=== PATIENT | female | born 1945 | race Caucasian/White ===

== ENCOUNTER 2021-05-09 10:20 | Emergency (ER) | payer MEDICARE, SELFPAY ==
--- NOTE | ~2021-05-09 | CT_ITS ---
EXAMINATION: CT ABDOMEN AND PELVIS WITHOUT CONTRAST CLINICAL INFORMATION: Right lower abdominal pain COMPARISON: None TECHNIQUE: Multidetector volumetric imaging was performed from the superior aspect of the liver through the pubic symphysis. Sagittal and coronal reformatted images were obtained on the technologist's workstation. This CT examination was performed using dose optimization techniques as appropriate, variously including the following: *Automated exposure control *Adjustment of mA and/or kV according to patient size (this includes techniques or standardized protocols for targeted exams where dose is matched to indication/reason for exam; i.e. extremities or head) *Use of iterative reconstruction technique DLP: 503 mGy-cm FINDINGS: LUNG BASES: The visualized lung bases are unremarkable. LIVER, GALLBLADDER, AND BILIARY TREE: There is a 5.5 cm cyst in the lateral segment of the left lobe of the liver. The liver is otherwise unremarkable. The gallbladder is unremarkable. There is no biliary duct dilatation. PANCREAS: Unremarkable. SPLEEN: Unremarkable. ADRENAL GLANDS: There is a 2 x 2.4 cm low-attenuation left adrenal lesion. Hounsfield units without contrast measure 9. This is a small focus of calcification. The right adrenal gland is normal. KIDNEYS AND URETERS: There is question of 2 small right renal stones measuring 1 to 2 mm. No hydronephrosis, ureteral dilatation or ureteral stone is. There are left renal peripelvic cysts. There is question of a tiny 1 mm left renal stone. BLADDER: Empty and not well evaluated. GASTROINTESTINAL TRACT: There is diverticulosis of the colon. There is wall thickening of the sigmoid colon. There is mild stranding of the pericolic fat and prominent vessels. Findings are questionable for mild sigmoid colon colitis or diverticulitis. Small and large bowel is otherwise unremarkable. The appendix is unremarkable. The stomach is unremarkable. ABDOMINAL WALL: No significant hernia is appreciated. LYMPH NODES: Normal. VASCULAR: There is evidence of atherosclerotic disease. PELVIC VISCERA: Unremarkable. OSSEOUS STRUCTURES: There are degenerative changes of the spine. CT/CT abdomen pelvis wo con IMPRESSION: Diverticulosis and question mild colitis or diverticulitis of the sigmoid colon. Normal-appearing appendix. Liver cyst. 2 x 2.4 cm low-attenuation left adrenal lesion probably representing an adenoma. Left renal peripelvic cysts. Question small bilateral renal stones. Fleischner guidelines were followed.
[2021-05-09 10:57] VITALS: BP 157/83; PULSE 85; RESP 18; TEMP 37; O2SAT 96; BMI 27.9
[2021-05-09 11:19] LABS: MANUAL DIFF FLAG NO
[2021-05-09 11:22] LABS: Basophils Percent Auto 0.4 % (0-2); Eosinophils Absolute Auto 0.1 X10*3/uL (0.0-0.4); Eosinophils Percent Auto 0.5 % (0-4); Hematocrit 40.1 % (37.0-47.0); Hemoglobin 13.7 g/dl (12.0-16.0); Imm Gran Abs Auto 0.03 X10*3/uL (0.00-0.03); Imm Gran Pct Auto 0.3 % (0.0-0.4); Lymphocytes Absolute Auto 1.2 X10*3/uL (1.2-4.9); Mean Corpuscular HGB Conc 34.2 g/dl (31.0-35.0); Mean Corpuscular Hemoglobin 31.9 pg (27.0-33.0); Mean Corpuscular Volume 93.3 fL (80.0-98.0); Mean Platelet Volume 10.4 fL (9.4-12.3); Monocytes Absolute Auto 1.1 X10*3/uL (0.1-1.2); Monocytes Percent Auto 10.3 % (2-11); Neutrophils Absolute Auto 7.8 x10*3/uL (2.0-8.3); Neutrophils Percent Auto 76.5 % (45-73); Platelet Count 284 X10*3/uL (160-400); Red Cell Distribution Width 12.5 % (11.0-16.0); White Blood Count 10.3 X10*3/uL (4.8-10.8)
[2021-05-09 11:34] LABS: Alanine Aminotransferase 30 U/L (0-31); Albumin Level 3.8 g/dL (3.5-5.0); Alkaline Phosphatase 98 U/L (39-117); Anion Gap 14 (12-20); Aspartate Amino Transferase 32 U/L (5-31); Bilirubin Total 0.6 mg/dL (0.0-1.0); Blood Urea Nitrogen 18 mg/dL (9-16); Calcium 9.7 mg/dL (8.4-10.2); Carbon Dioxide 25 mmol/L (22-29); Chloride 101 mmol/L (96-108); Creatinine Clr Calc Pharmacy 45.1; Estimated Glomerular Filt Rate 59; Glucose Random 105 mg/dL (60-115); Potassium 4.1 mmol/L (3.3-5.1); Sodium 136 mmol/L (135-145); Total Protein 6.3 g/dL (6.5-8.0)
--- NOTE | 2021-05-09 12:47 | ED.ABDPAIN ---
HPI - Abdominal Pain General Chief Complaint: Abdominal Pain Stated Complaint: abd pain - ?bowel obstruction Time Seen by Provider: 05/09/21 12:47 Source: patient Mode of arrival: ambulatory Limitations: no limitations History of Present Illness HPI narrative: 76-year-old female came in for evaluation of abdominal pain for 2 days. Abdominal pain started 2 days ago, described as constant, feels like cramps, moderate 5/10, pain is mostly to the right side of the abdomen, no alleviating factors, no worsening factors, pain is associated with constipation patient been having small hard bowel movements small brown bowel movements. Patient also been feeling nauseous but no vomiting. Patient declined any fever or chills, no dysuria or frequency, Related Data Previous Rx's Medication Instructions Recorded ciprofloxacin HCl 500 mg tablet 500 mg PO Q12H #14 tab 05/09/21 (Cipro) metronidazole 500 mg tablet 250 mg PO BID #14 tab 05/09/21 Allergies Allergy/AdvReac Type Severity Reaction Status Date / Time No Known Allergies Allergy Verified 05/09/21 11:09 Review of Systems Review of Systems All other systems are reviewed and are negative Constitutional: Reports as per HPI and Reports no additional constitutional complaints Eyes: Reports as per HPI and Reports no additional eye complaints Reports system reviewed and no additional complaints, except as documented Cardiovascular: Reports as per HPI and Reports no additional cardiovascular complaints Respiratory: Reports as per HPI and Reports no additional respiratory complaints Gastrointestinal: Reports as per HPI and Reports no additional gastrointestinal complaints Genitourinary: Reports no additional female genitourinary complaints Musculoskeletal: Reports no additional musculoskeletal complaints Skin/Breast: Reports system reviewed and no additional complaints, except as docu Psychiatric: Reports no additional psychiatric complaints Endocrine: Reports no additional endocrine complaints Hematologic/Lymphatic: Reports no additional hematologic/lymphatic complaints Allergic/Immunologic: Reports no additional allergic/immunologic complaints Reports system reviewed and no additional complaints, except as documented and Reports Abnormal speech present Physical Exam Vital Signs: Vital Signs: Last Vital Signs Temp 98.6 F 05/09/21 10:57 Pulse 85 05/09/21 10:57 Resp 18 05/09/21 10:57 BP 157/83 H 05/09/21 10:57 Pulse Ox 96 05/09/21 10:57 Body Mass Index 27.9 Vital signs have been reviewed as appeared to be correct. Blood pressure normal. Heart rate normal. Respiration rate normal. Temperature normal. Oxygen saturation normal. Appearance: Alert. Oriented X3. No acute distress. Head: Normal external exam. Normocephalic. Atraumatic. No Lombardo signs noted. No raccoon eyes noted Eyes: PERRLA. EOMI. Conjunctiva and sclera normal. Eyelids normal. ENT: TM's Normal. Pharynx normal. Uvula midline. Moist mucous membranes. No trismus noted. No drooling noted. No muffled voice noted. Neck: Normal inspection. Neck supple. FROM. No adenopathy. Thyroid Normal. No meningeal signs. No neck mass noted. CVS: Normal heart rate and rhythm. Heart sound normal. No murmurs noted. Pulses normal throughout. Respiratory: No respiratory distress. Painless inspiration. Breath sounds normal. No wheezes/rales/rhonchi noted. Chest nontender. No accessory muscle usage noted or decreased air movement noted. Abdomen: Soft, lower abdominal tenderness, no guarding, no rebound tenderness. Bowel sounds normal in all 4 quadrants. No distention noted. No organomegaly noted. No visible injury noted. Back: No CVA tenderness. Full range of motion noted. Skin: Skin warm and dry. Normal skin color. Normal skin turgor. No rashes/lesions/lacerations noted. Extremities: No lower extremity edema. Extremities exhibit normal range of motion. Extremities nontender. Neuro: Oriented X 3. Cranial nerve exam: II-XII are grossly intact No motor deficit. No sensory deficit. Reflexes normal. Course Course Course Narrative: 76-year-old female came in for evaluation of abdominal pain, patient had a history of diverticular disease, physical exam is consistent with acute diverticulitis. Patient exam and vital signs stable, will start the patient on p.o. antibiotic and sent home on Cipro/Flagyl antibiotic. MDM - Abdominal Pain Medical Records Attestation: I reviewed the patient's medical records. Lab Data Attestation: I reviewed the patient's lab results. Result diagrams: 05/09/21 11:11 05/09/21 11:11 Labs: Lab Results 05/09/21 05/09/21 05/09/21 Range/Units 11:11 11:11 13:39 WBC 10.3 (4.8-10.8) X10*3/uL RBC 4.30 (4.20-5.50) X10*6/uL Hgb 13.7 (12.0-16.0) g/dl Hct 40.1 (37.0-47.0) % MCV 93.3 (80.0-98.0) fL MCH 31.9 (27.0-33.0) pg MCHC 34.2 (31.0-35.0) g/dl RDW 12.5 (11.0-16.0) % Plt Count 284 (160-400) X10*3/uL MPV 10.4 (9.4-12.3) fL Immature Gran % (Auto) 0.3 (0.0-0.4) % Neut % (Auto) 76.5 H (45-73) % Lymph % (Auto) 12.0 L (20-40) % Ralls % (Auto) 10.3 (2-11) % Eos % (Auto) 0.5 (0-4) % Baso % (Auto) 0.4 (0-2) % Lymph # (Auto) 1.2 (1.2-4.9) X10*3/uL Ralls # (Auto) 1.1 (0.1-1.2) X10*3/uL Eos # (Auto) 0.1 (0.0-0.4) X10*3/uL Baso # (Auto) 0.0 (0.0-0.2) X10*3/uL Abs Immat Gran (auto) 0.03 (0.00-0.03) X10*3/uL Absolute Neuts (auto) 7.8 (2.0-8.3) x10*3/uL Absolute Nucleated RBC 0.000 (0.0-0.012) X10*3/uL Nucleated RBC % (auto) 0.0 (0.0-0.2) /100WBC Sodium 136 (135-145) mmol/L Potassium 4.1 (3.3-5.1) mmol/L Chloride 101 (96-108) mmol/L Carbon Dioxide 25 (22-29) mmol/L Anion Gap 14 (12-20) BUN 18 H (9-16) mg/dL Creatinine 0.93 (0.5-1.4) mg/dL Estim Creat Clear Calc 45.1 Estimated GFR 59 Random Glucose 105 (60-115) mg/dL Calcium 9.7 (8.4-10.2) mg/dL Total Bilirubin 0.6 (0.0-1.0) mg/dL AST 32 H (5-31) U/L ALT 30 (0-31) U/L Alkaline Phosphatase 98 (39-117) U/L Total Protein 6.3 L (6.5-8.0) g/dL Albumin 3.8 (3.5-5.0) g/dL Urine Color YELLOW Urine Appearance CLEAR Urine pH 7.5 (5.0-8.0) Ur Specific [place] 1.010 (1.005-1.025) Urine Protein NEG (NEG-TRACE) MG/DL Urine Glucose (UA) NEG (NEG) MG/DL Urine Ketones NEG (NEG) MG/DL Urine Blood NEG (NEG) Urine Nitrite NEG (NEG) Ur Leukocyte Esterase NEG (NEG) Imaging Data CT scan - abdomen: Radiologist's impression: Diverticulosis and question mild colitis or diverticulitis of the sigmoid colon. Normal-appearing appendix. Liver cyst. 2 x 2.4 cm low-attenuation left adrenal lesion probably representing an adenoma. Left renal peripelvic cysts. Question small bilateral renal stones. Discharge Plan Discharge Clinical Impression: Diverticulitis, Abdominal pain Patient Disposition: Home, Self-Care Instructions: Diverticulitis (ED) Prescriptions: New ciprofloxacin HCl [Cipro] 500 mg tablet 500 mg PO Q12H Qty: 14 RF: 0 metronidazole 500 mg tablet 250 mg PO BID Qty: 14 RF: 0 Referrals: Jose Benavidez MD [Primary Care Provider] - 2 days [facility] Past Medical History Medical History GERD (gastroesophageal reflux disease) Hypercholesteremia Hypertension Hypothyroidism Social History Social History Advance Directives: Yes Advance Directives Information Provided: No Advance Directives on File: No
[2021-05-09 13:47] LABS: Appearance Urine CLEAR; Color Urine YELLOW; Glucose Urine UA NEG (NEG); Leukocyte Esterase Urine NEG (NEG); Nitrite Urine NEG (NEG); PH 7.5 (5.0-8.0); Urine Blood NEG (NEG); Urine Ketones NEG (NEG); Urine Protein NEG (NEG-TRACE)
[2021-05-09] MEDS: metroNIDAZOLE 500 MG TABLET PO (15:05)
[2021-05-09 15:30] VITALS: BP 114/76; PULSE 86; RESP 18; TEMP 36.9; O2SAT 96
--- NOTE | 2021-05-09 15:34 | PC.NURSE ---
Pt alert and oriented x4, calm and cooperative. pt denies pain. Pt denies N/V. Pt states she is ready for discharge. IV removed. Vitals removed. Pt ambulated to private car steady on her feet.
== END 2021-05-09 15:35 | disposition home or self-care (01) ==
PROVIDERS: Emergency Provider Emergency Medicine; PCP Internal Medicine
DX: K57.32 Diverticulitis of large intestine without perforation or abscess without bleeding (principal); R10.9 Unspecified abdominal pain; I10 Essential (primary) hypertension; K21.9 Gastro-esophageal reflux disease without esophagitis
CPT/HCPCS: 36415; 74176; 80053; 81003; 85025; 99284

== ENCOUNTER 2024-04-27 08:34 | Day surgery (SDC) | payer MEDICARE, SELFPAY ==
[2024-04-21 16:22] VITALS: BMI 24.6
--- NOTE | 2024-04-23 13:54 | HO.ANESPROP2 ---
HPI - Anesthesia Eval Consult details Narrative: 79yo F for Left Cataract Extraction IOL Insertion No previous cataract on record PMFSH Past Medical History Medical History History of kidney stones Pulmonary nodule Osteoporosis Cataracts, bilateral Hypothyroidism Hypercholesteremia Hypertension GERD (gastroesophageal reflux disease) Surgical History Surgical History Hx of colonoscopy Hx of repair of left rotator cuff History of right shoulder replacement (~2022) Social History Social History Are you a primary anesthesiologist and critical care to a significant other at home: No Do you presently have visiting nurse or other home services: No Patient Tobacco Use Status: Never used Tobacco Use of substances other than those prescribed or required for medical reasons: No Have you been hit, kicked, punched, or otherwise hurt by someone within the past year? If so, by whom?: No Are you DNR?: No Advance Directives: No (will bring dos) Advance Directives Information Provided: Yes Advance Directives on File: No Recently lost weight without trying: No Poor oral hygiene: No Meds Allergies Allergy/AdvReac Type Severity Reaction Status Date / Time fluconazole Allergy Unknown Verified 04/22/24 16:26 Home Medications ?Medication ?Instructions ?Recorded ?Confirmed ?Last Taken ?Type atorvastatin 40 mg tablet 40 mg PO BEDTIME 04/21/24 04/21/24 Unknown History hydrochlorothiazide 25 mg tablet 25 mg PO DAILY 04/21/24 04/21/24 Unknown History lisinopril 10 mg tablet 10 mg PO DAILY 04/21/24 04/21/24 Unknown History omeprazole 20 mg capsule,delayed 20 mg PO DAILY 04/21/24 04/21/24 Unknown History release Exam Height,Weight and Vital Signs: Height 5 ft 1 in Weight 58.967 kg Assessment and Plan Assessment Anesthesia Assessment: Chart Reviewed
[2024-04-27] MEDS: Tetracaine HCl/PF 0.5% Oph Sol 4 ML DROPS 1 DROP EYE-LEFT (10:10)
[2024-04-27] MEDS: Phenylephrine HCL 2.5% Oph SoL 2 ML BOTTLE 1 DROP EYE-LEFT ×3 (10:10→10:24)
[2024-04-27] MEDS: Lactated Ringers 500 ML 50 ML IV (10:10)
[2024-04-27] MEDS: Tropicamide 1 % Ophth Sol 3 ML BTL 1 DROP EYE-LEFT ×3 (10:11→10:24)
[2024-04-27] MEDS: Ketorolac Tromethamine 0.5% Op 10 ML DROPS 1 DROP EYE-LEFT ×3 (10:11→10:24)
[2024-04-27] MEDS: Cyclopentolate 1 % Ophth Sol 2 ML DRPBTL 1 DROP EYE-LEFT ×3 (10:11→10:24)
[2024-04-27 10:29] VITALS: BP 151/71; PULSE 71; RESP 18; TEMP 36.6; O2SAT 97
--- NOTE | 2024-04-27 10:50 | MHC.SHP ---
Pre-Procedural Eval Section A - 24 Hr Update-Section A only Date of Service: 04/27/24 The patient is an INPATIENT: No Changes since office visit: No Cold of Flu in the past 2 weeks, No New Medical Problems, No Changes in Medication and No Patient answered all questions The patient has been examined within 24 hours of the surgical procedure. The History & Physical has been completed within 30 days and I have reviewed it.: Yes Section B - Complete if H&P > 30 days Chief Complaint: Age-related nuclear cataract, left eye Allergies: Allergies Allergy/AdvReac Type Severity Reaction Status Date / Time fluconazole Allergy Unknown Verified 04/22/24 16:26 Plan Diagnosis/Plan: Unchanged I have reviewed the history and physical and performed a pertinent physical examination on my patient. No changes have occurred unless specified. Time Spent With Patient Time: Total time managing care of this patient today ____ minutes.
--- NOTE | 2024-04-27 10:50 | HO.PNOPHT ---
Ophthalmology Procedure Procedure Date of Service: 04/27/24 Ophthalmology Viscoelastic: Healon Duet Dual Pack Pro Ophthalmology Lenses: IOL Acrysof MP - [id number] (17.5) Procedure Notes: PREOPERATIVE DIAGNOSIS: Decreased visual acuity left eye secondary to cataract POSTOPERATIVE DIAGNOSIS: Same PROCEDURE: Left cataract extraction with intraocular lens insertion SURGEON: Ad Oakes M.D. ANESTHESIA: Topical/MAC ESTIMATED BLOOD LOSS: None COMPLICATIONS: None After obtaining informed consent, the patient was brought to the operation room suite and placed in the supine position. After adequate sedation per anesthesia, topical drops of Tetracaine were given to the left eye. The eye was then prepped and draped in the usual sterile fashion. The operating room microscope was then positioned over the operative eye and a lid speculum placed. A paracentesis was created. Viscoelastic was then instilled into the anterior chamber. A three plane incision was then created temporally, utilizing a 2.85 mm keratome. Capsulotomy forceps were then utilized to create a circular tear capsulotomy. Hydrodissection and hydrodelineation were carried out until adequate mobilization of the nucleus occurred. Phacoemulsification was then utilized to remove the dense central nucleus followed by removal of the cortical material utilizing the automated aspiration irrigation unit. Viscoat elastic was instilled into the posterior capsular bag followed by placement of a posterior chamber intraocular lens without difficulty. The residual Viscoat elastic was then removed utilizing the automated IA machine. The wound was check and found to be watertight. The patient tolerated the procedure well and the lid speculum was removed. Intracameral injection of Vigamox 0.1 mL followed by a subtenon injection of Kenalog-40 0.2 mL were administered. The patient will be seen in the a.m.
[2024-04-27 11:09] VITALS: BP 137/68; PULSE 65; RESP 18; TEMP 36.4; O2SAT 100
--- OUTSIDE RECORDS SUMMARY | 2024-05-01 13:00 | XMS_ITS | Continuity of Care Document ---
Author Organization [facility] ter Address [address] [place] [id number]- Care Team Providers Care Promotional Model Name Role Phone Jose Benavidez III, MD Primary Care Physician [place] [facility] [place]23 - 01/22/[address] [id number] Discharge Disposition: A-D/C Home Attending Physician: Marlen Cuba MD, V Admitting Physician: Marlen Cuba MD, V Referring Physician: Marlen Cuba MD, V Allergies, Adverse Reactions, Alerts No Known Allergies Medications acetaminophen 500 mg oral tablet 2 tablet = 1,000 mg, By Mouth, 3 times a day, for 14 days, # 84 tablet, 0 Refills, Acute 02/05/23 11:22:00 EDT, 01/22/23 11:22:00 EDT, Partial fill upon patient request if the prescription is for a schedule II opioid drug. Start Date: 01/22/23 Stop Date: 02/05/23 Status: Ordered aspirin buffered 325 mg oral tablet 1 tablet = 325 mg, By Mouth, Daily, # 14 tablet, 0 Refills, Maintenance, 01/22/23 11:23:00 EDT, Tablet, Partial fill upon patient request if the prescription is for a schedule II opioid drug. Start Date: 01/22/23 Stop Date: 02/05/23 Status: Ordered Colace sodium 100 mg oral capsule 100 mg, 1, capsule, By Mouth, 2 times a day, PRN, # 60 capsule, Refills 0, Tot. Refills 0, Maintenance, for constipation, 01/22/23 11:23:00 EDT, Do Not Route, Partial fill upon patient request if theprescription is for a schedule II opioid drug. Start Date: 01/22/23 Stop Date: 02/21/23 Status: Ordered hydrochlorothiazide 25 mg oral tablet 1 tablet, By Mouth, Daily, # 30 tablet, 0 Refills, Maintenance, Tablet Start Date: 11/02/10 Status: Ordered lisinopril 10 mg oral tablet 1 tablet, By Mouth, Daily, # 30 tablet, 0 Refills, Maintenance, Tablet Start Date: 11/02/10 Status: Ordered Omeprazole = 20 mg, By Mouth, Daily in AM, 0 Refills, Maintenance, 07/19/22 10:41:00 EST, Partial fill upon patient request if the prescription is for a schedule II opioid drug. Start Date: 07/19/22 Status: Ordered oxyCODONE 5 mg oral tablet 5 mg, 1, tablet, By Mouth, Every 4 hours, PRN, # 42 tablet, Refills 0, Tot. Refills 0, Acute 01/29/23 9:00:00 EDT, as needed for pain, 01/22/23 11:22:00 EDT, Do Not Route, Partial fill upon patient request if the prescription is for a schedule II opio... Start Date: 01/22/23 Stop Date: 01/29/23 Status: Ordered pravastatin 10 mg oral tablet 1 tablet, By Mouth, Daily, # 30 tablet, 0 Refills, Maintenance, Tablet Start Date: 11/02/10 Status: Ordered Results Radiology Reports * Exam Date Time Procedure Performing Provider Status 01/22/23 1:52 PM Shoulder 1 View Right Samantha Pinon ; Auth (Verified) Notes: (Shoulder 1 View Right) Reason For Exam: s/p Right reverse total shoulder arthroplasty;Other: RESULT: Shoulder 1 View Right Shoulder 1 View Right Reason: Right reverse total shoulder arthroplasty; Clinical Question(s): Dislocation COMPARISON: None. FINDINGS: Single AP semiupright AP radiograph of the right shoulder labeled post op without evidence of immediate complication. Included lungs are clear. IMPRESSION: Expected postoperative changes. WSN: [id number] Ordering Physician: Marlen Cuba V Dictated By: Fidel Liang MD Dictated Date/Time: 01/22/23 4:58 pm Reviewed By: Fidel Liang MD Signed By: Fidel Liang MD Signed Date/Time: 01/22/23 4:58 pm Transcribed By: CSB Transcribed Date/Time: 01/22/23 4:57 pm Vital Signs Most recent to oldest [Reference Range]: 1 2 3 Height 155 cm (01/22/23 9:20 AM) 155 cm (01/18/23 10:01 AM) Weight 60.8 kg (01/22/23 9:20 AM) 64 kg (01/18/23 10:01 AM) Oxygen Saturation [94-100 %] 95 % (01/22/23 12:45 PM) 94 % (01/22/23 12:30 PM) 92 % *L* (01/22/23 12:15 PM) Pulse Rate [55-90 bpm] 82 bpm (01/22/23 9:20 AM) Body Mass Index [18.5-24.99 kg/m2] 25.31 kg/m2 *H* (01/22/23 9:20 AM) 26.64 kg/m2 *H* (01/18/23 10:01 AM) Blood Pressure [90-138/55-84 mm Hg] 120/92mm Hg (01/22/23 12:45 PM) 124/80mm Hg (01/22/23 12:30 PM) 115/78mm Hg (01/22/23 12:15 PM) Respiratory Rate [16-30 br/min] 23 br/min (01/22/23 12:45 PM) 21 br/min (01/22/23 12:30 PM) 26 br/min (01/22/23 12:15 PM) Temperature [96.8-100.4 DegF] 97 DegF (01/22/23 11:30 AM) 98.8 DegF (01/22/23 9:20 AM) Liters per Minute 6 L/min (01/22/23 11:30 AM) 3 L/min (01/22/23 9:50 AM) 3 L/min (01/22/23 9:45 AM) Mode of Delivery (Oxygen) Room air (01/22/23 12:45 PM) Room air (01/22/23 12:00 PM) Room air (01/22/23 11:45 AM) Blood pressure sites Arm, left (01/22/23 11:30 AM) Arm, left (01/22/23 9:20 AM) Temperature Route Temporal (01/22/23 11:30 AM) Temporal (01/22/23 9:20 AM) Dry Weight 60.8 kg (01/22/23 9:20 AM) 64 kg (01/18/23 10:01 AM) Weight Obtained Via Standing scale (01/22/23 9:20 AM) Patient/family stated (01/18/23 10:01 AM) Dry Weight Obtained Via Standing scale (01/22/23 9:20 AM) Patient/family stated (01/18/23 10:01 AM) Note * Ольга Mesa RN: PERFORM Event Display: Discharge/Transfer Note Hospital Authored Date: [id number] Nursing Discharge Note Entered On: 01/22/2023 15:00 EDT Performed On: 01/22/2023 13:52 EDT by Ольга Mesa RN Nursing Discharge Note 2 Discharge Time : 01/22/2023 13:52 EDT Discharge Level of Care at Discharge : Home/Nursing Home/Foster Care Patient Left Unit Via : Wheelchair Patient Accompanied Off Unit with : Responsible adult DC Instructions Provided & Signed by Pt : Yes Patient Understands D/C Instructions : Yes Verbalized Understanding of D/C Plan By : Patient Patient Instructions Discharge Signed : Yes Did Pt have Specialty Bed or Wound Vac : No Олгьа Mesa RN - 01/22/2023 14:59 EDT * Ольга Mesa RN: PERFORM Event Display: Patient Education/Instruction Authored Date: [id number] Surgery Adult Discharge Instructions [place] [id number] Name: NIKIA WONG : 1945?? Visit: 01/22/2023 07:49?? Current Date: 01/22/2023 12:11 ?? Account: [id number]?? Surgery Discharge Instructions We would like to thank you for allowing us to assist you with your healthcare needs. The following includes patient education materials and information regarding your injury/illness. Our entire staffstrives to provide an excellent experience for our patients and their families. PLEASE ENSURE YOU FOLLOW-UP PER THE INSTRUCTIONS BELOW! ?? YOUR OPINION IS IMPORTANT TO US! Please complete the survey you may receive by mail or email. Your feedback will be used to make improvements to the healthcare experiences of our patients and their families. Surveys are administered by [employer] ?? If further treatment with your primary care physician or another doctor is recommended, it is important for you to keep the appointment. Call your primary care physician or return to the Emergency Department immediately if your condition worsens, fails to improve, or new symptoms develop. If you need to find a doctor, you can call [facility] [employer] for a referral at [phone] or toll free at [phone] or log in to [email or web address].. ?? You can view and manage your care through the patient portal or by using a health care catarina of your choosing. [employer] is a website that allows you to securely view your medical information including your hospital discharge summary, office visit summaries, medications and follow-up visits. You can also request appointments, renew medications, and request access to your medical information using a health care catarina of your choosing, or just ask a question. You are entitled to know the individuals who participated in your treatment. This information is available within your medical record and will be provided upon your request. You can enroll at [email or web address] or register d uring your next office visit. You have been discharged from [facility], Patient Care Unit: [facility]??. If you have any questions regarding these instructions after you leave, please call us and we will be happy to assist you. [facility] Your Care Team Attending Physician Marlen Cuba MD, V?? Discharging Providers Marlen Cuba MD, V Reason for Admission RIGHT SHOULDER OSTEOARTHRITIS CS DS Primary Care Provider Jose Benavidez III, MD? Advance Directive Health Care Proxy on File No What to do next Instructions From Your Doctor ?? Orders?? Unit Discharge Criteria Met, ??Must void prior to discharge, ??01/22/23 11:21:00 EDT?? Prescriptions??, ??01/22/23 11:21:00 EDT?? Instructions from your Care Team ?? Keep arm in sling and swath. ?? Apply ice, on 20 minutes and off 40 minutes, while awake for 48 hours or as needed. ?? May shower with dressing in place as soon as post operative day #1. ?? Prescription electronically prescribed. You Need to Schedule the Following Appointments Follow Up with??Marlen Cuba Where: [address] [facility] [place] [address]- Business (1) Follow Up with??Jose Benavidez When:??In 0 days Where: [address] [place] [address]- Business (1) Discharge Medications NIKIA WONG :1945 Visit Date:01/22/2023 Medications: Please continue your medications until treatment is completed or stopped by your provider. You may resume your daily prescription medications. Discuss any questions related to medications with your provider. What How Much When Instructions Next Dose New Acetaminophen (acetaminophen 500 mg oral tablet) 2 tab(s) Oral 3 times a day Duration: 14 Days New Aspirin (aspirin buffered 325 mg oral tablet) 1 tab(s) Oral Daily Duration: 14 Days New Docusate (Colace sodium 100 mg oral capsule) 1 capsule Oral Twice a day as needed for for constipation Duration: 30 Days Changed Oxycodone (oxyCODONE 5 mg oral tablet) 1 tab(s) Oral Every 4 hours as needed for as needed for pain Unchanged Hydrochlorothiazide (hydrochlorothiazide 25 mg oral tablet) 1 tab(s) Oral Daily Unchanged Lisinopril (lisinopril 10 mg oral tablet) 1 tab(s) Oral Daily Unchanged Omeprazole 20 Milligram Oral Daily in the morning Unchanged Pravastatin (pravastatin 10 mg oral tablet) 1 tab(s) Oral Daily ?? What How Much When Comments Stop Taking Naproxen (Aleve 220 mg oral capsule) 1 capsule Oral Every 12 hours Duration: 5 Days Allergies (NKA means No Known Allergies) NKA Education Materials Below is the list of Educational Leaflet Providered with your Discharge Instructions. Valuables and Belongings I fully understand and agree that [facility] accepts no responsibility for all my personal property including clothing, toilet articles, radios, jewelry, dentures, hearing aids, rings, money, or any other property that is in my possession or is brought to me after admission. I understand certain valuables may be placed in a hospital safe for a short period of time. I understand that the hospital is not liable for loss or damage due to accident, fire, or other natural occurrence while said property is in the safe. I accept full responsibility for any personal property that I keep with me, and will not hold the hospital responsible in case of loss or disappearance. I acknowledge that i have been encouraged to send valuables and belongings home. ?? Date for Pt to Sign Valuables/Belongings: 01/22/23 09:20:00 ?? Valuables & Belongings ?? Clothes Electronic devices Jewelry Monetary Items Personal devices Miscellaneous Medications (Valuables) Valuables at Bedside Pants, Shirt, Shoes ? Purse ? Valuables Sent Home ? Valuables Sent to Security ? Other Discharge Information ? Pulmonary Rehab Status?? Pulmonary Rehab Discharge Status?? Respiratory Rate: 21 br/min ? Common Emergency Awareness Tips IS IT A STROKE? Act FAST and Check for these signs: FACE Does the face look uneven? ARM Does one arm drift down? SPEECH Does their speech sound strange? TIME Call at any sign of stroke ?? Heart Attack Signs Chest discomfort: Most heart attacks involve discomfort in the center of the chest and lasts more than a few minutes, or goes away and comes back. It can feel like uncomfortable pressure, squeezing, fullness or pain. Discomfort in upper body: Symptoms can include pain or discomfort in one or both arms, back, neck, jaw or stomach. Shortness of breath: With or without discomfort. Other signs: Breaking out in a cold sweat, nausea, or lightheaded. Remember, MINUTES DO MATTER. If you experience any of these heart attack warning signs, call to get immediate medical attention! ?? Smoking can increase your chances of developing chronic health problems and can cause harmful effects to other family members in your house. If you smoke, you are strongly encouraged to quit. Please call [employer] at [phone] or 8-855-648StowThat ([phone]) or log in to [email or web address] for referrals to smoking cessation programs. ?? The National Suicide Prevention Hotline is available 31/12 if you or someone you know needs to find a reason to keep living. By calling 4-238-849-ruab (0157) you'll be connected to a skilled, trained counselor at a crisis center in your area. SURGERY DISCHARGE INSTRUCTIONS SIGNATURE PAGE NIKIA WONG Location:[facility] Registration Date and Time:01/22/2023 07:49 EDT Primary Care Physician: Pramod DELCID MD, Jose Sellers, Attending Physician: Rosa Elena CAVANAUGH, Marlen Smith, I NIKIA WONG, have received the above patient education materials/instructions and have verbalized understanding. If ambulance or transport services are being used I further acknowledge being given a choice of service. ?? If you need to contact me, please call me at this number: __[phone] . Patient/Machine Greaser Name:__Nikia Wong Patient/Machine Greaser Signature: Relationship to Patient: Witness Name/Signature: Date:__62-97-06 * Ольга Mesa RN: PERFORM, SIGN, VERIFY Event Display: Patient Education Handout Authored Date: Patient Care team information Care Team Personnel Name: Pramod DELCID MD, Jose Sellers Position: Reference Physician Member Role: PCP Address: Address: [address] [place] [id number]- Care Team Related Persons Name: TOM BLACKBURN Address: [address] [place] [address]
== END 2024-04-27 11:27 | disposition home or self-care (01) ==
PROVIDERS: PCP Internal Medicine; Visit Provider Ophthalmology
PROC: (CPT 66985; principal; 2024-04-27 11:30)
DX: H25.12 Age-related nuclear cataract, left eye (principal); H52.4 Presbyopia; I10 Essential (primary) hypertension; H18.413 Arcus senilis, bilateral; H11.153 Pinguecula, bilateral; H04.123 Dry eye syndrome of bilateral lacrimal glands; Z79.899 Other long term (current) drug therapy
CPT/HCPCS: 66984; J2250; J3301; V2630

== ENCOUNTER 2024-05-11 09:25 | Day surgery (SDC) | payer MEDICARE, SELFPAY ==
[2024-04-21 16:25] VITALS: BMI 24.6
--- NOTE | 2024-05-05 14:25 | P.CONAN_ITS ---
Documented by User: Keiko Oates NP 05/05/24 14:26 HPI - Anesthesia Eval Consult details Narrative: 79yo F for Right Cataract Extraction IOL Insertion Left eye 04/27/24: Midaz 1 PMFSH Past Medical History Medical History History of kidney stones Pulmonary nodule Osteoporosis Cataracts, bilateral Hypothyroidism Hypercholesteremia Hypertension GERD (gastroesophageal reflux disease) Surgical History Surgical History Hx of colonoscopy Hx of repair of left rotator cuff History of right shoulder replacement (~2022) Social History Social History Are you a primary human services care specialist to a significant other at home: No Do you presently have visiting nurse or other home services: No Patient Tobacco Use Status: Never used Tobacco Use of substances other than those prescribed or required for medical reasons: No Have you been hit, kicked, punched, or otherwise hurt by someone within the past year? If so, by whom?: No Are you DNR?: No Advance Directives: No (will bring dos) Advance Directives Information Provided: Yes Advance Directives on File: No Recently lost weight without trying: No Nutrition Risks: Surgical patient >75years Poor oral hygiene: No Meds Allergies Allergy/AdvReac Type Severity Reaction Status Date / Time fluconazole Allergy Unknown Verified 05/11/24 10:17 Home Medications ?Medication ?Instructions ?Recorded ?Confirmed ?Last Taken ?Type atorvastatin 40 mg tablet 40 mg PO BEDTIME 04/21/24 04/21/24 05/11/24 History hydrochlorothiazide 25 mg tablet 25 mg PO DAILY 04/21/24 04/21/24 05/11/24 History lisinopril 10 mg tablet 10 mg PO DAILY 04/21/24 04/21/24 05/11/24 History omeprazole 20 mg capsule,delayed 20 mg PO DAILY 04/21/24 04/21/24 Unknown History release Exam Height,Weight and Vital Signs: Height 5 ft 1 in Weight 58.967 kg Assessment and Plan Assessment Anesthesia Assessment: Chart Reviewed Documented by User: Porsche Eaton MD 05/11/24 10:21 [facility] Past Medical History Medical History History of kidney stones Pulmonary nodule Osteoporosis Cataracts, bilateral Hypothyroidism Hypercholesteremia Hypertension GERD (gastroesophageal reflux disease) Family History Family history of problems with anesthesia: No Surgical History Surgical History Hx of colonoscopy Hx of repair of left rotator cuff History of right shoulder replacement (~2022) History of Problems with Anesthesia: No Social History Social History Are you a primary human services care specialist to a significant other at home: No Do you presently have visiting nurse or other home services: No Patient Tobacco Use Status: Never used Tobacco Use of substances other than those prescribed or required for medical reasons: No Have you been hit, kicked, punched, or otherwise hurt by someone within the past year? If so, by whom?: No Are you DNR?: No Advance Directives: No (will bring dos) Advance Directives Information Provided: Yes Advance Directives on File: No Recently lost weight without trying: No Nutrition Risks: Surgical patient >75years Poor oral hygiene: No Meds Allergies Allergy/AdvReac Type Severity Reaction Status Date / Time fluconazole Allergy Unknown Verified 05/11/24 10:17 Home Medications ?Medication ?Instructions ?Recorded ?Confirmed ?Last Taken ?Type atorvastatin 40 mg tablet 40 mg PO BEDTIME 04/21/24 04/21/24 05/11/24 History hydrochlorothiazide 25 mg tablet 25 mg PO DAILY 04/21/24 04/21/24 05/11/24 History lisinopril 10 mg tablet 10 mg PO DAILY 04/21/24 04/21/24 05/11/24 History omeprazole 20 mg capsule,delayed 20 mg PO DAILY 04/21/24 04/21/24 Unknown History release Exam Airway Mallampati Class: II TM Dist: >3cm Neck ROM: Full Heart: rrr Lungs: cta Assessment and Plan Assessment Anesthesia Assessment: Anesthesia Plan Discussed Final Anesthetic Review Family History of Problems with Anesthesia: No History of Problems with Anesthesia: No NPO: Yes ASA Class: III Final Preanesthetic Review: No Changes in Pt Med Stat, Meds/Allgs Chart Reviewed, Consent Obtained/Reviewed and Anes Risks/Benef Reviewed Patient Risk: Intermediate Procedure Risk: Low Anesthetic Plan Anesthetic Plan: MAC: Disposition: Standard PACU
[2024-05-11] MEDS: Lactated Ringers 500 ML 50 ML IV (10:02)
[2024-05-11] MEDS: Tetracaine HCl/PF 0.5% Oph Sol 4 ML DROPS 1 DROP EYE-RIGHT (10:02)
[2024-05-11] MEDS: Cyclopentolate 1 % Ophth Sol 2 ML DRPBTL 1 DROP EYE-RIGHT ×3 (10:03→10:12)
[2024-05-11] MEDS: Tropicamide 1 % Ophth Sol 3 ML BTL 1 DROP EYE-RIGHT ×3 (10:03→10:12)
[2024-05-11] MEDS: Phenylephrine HCL 2.5% Oph SoL 2 ML BOTTLE 1 DROP EYE-RIGHT ×3 (10:03→10:12)
[2024-05-11] MEDS: Ketorolac Tromethamine 0.5% Op 10 ML DROPS 1 DROP EYE-RIGHT ×3 (10:03→10:12)
[2024-05-11 10:16] VITALS: BP 135/71; PULSE 75; RESP 18; TEMP 36.8; O2SAT 99
--- NOTE | 2024-05-11 10:45 | MHC.SHP ---
Pre-Procedural Eval Section A - 24 Hr Update-Section A only Date of Service: 05/11/24 The patient is an INPATIENT: No Changes since office visit: No Cold of Flu in the past 2 weeks, No New Medical Problems, No Changes in Medication and No Patient answered all questions The patient has been examined within 24 hours of the surgical procedure. The History & Physical has been completed within 30 days and I have reviewed it.: Yes Section B - Complete if H&P > 30 days Chief Complaint: Age-related nuclear cataract, right eye Allergies: Allergies Allergy/AdvReac Type Severity Reaction Status Date / Time fluconazole Allergy Unknown Verified 05/11/24 10:17 Plan Diagnosis/Plan: Unchanged I have reviewed the history and physical and performed a pertinent physical examination on my patient. No changes have occurred unless specified. Time Spent With Patient Time: Total time managing care of this patient today ____ minutes.
--- NOTE | 2024-05-11 10:46 | P.PCNO_ITS ---
Ophthalmology Procedure Procedure Date of Service: 05/11/24 Ophthalmology Viscoelastic: Healon Duet Dual Pack Pro Ophthalmology Lenses: IOL Acrysof MP - MA60AC (16.5) Procedure Notes: PREOPERATIVE DIAGNOSIS: Decreased visual acuity right eye secondary to cataract POSTOPERATIVE DIAGNOSIS: Same PROCEDURE: Right cataract extraction with intraocular lens insertion SURGEON: Ad Oakes M.D. ANESTHESIA: Topical/MAC ESTIMATED BLOOD LOSS: None COMPLICATIONS: None After obtaining informed consent, the patient was brought to the operating room suite and placed in the supine position. After adequate sedation per anesthesia, topical drops of Tetracaine were given to the right eye. The eye was then prepped and draped in the usual sterile fashion. The operating room microscope was then positioned over the operative eye and a lid speculum placed. A paracentesis was created. Viscoelastic was then instilled into the anterior chamber. A three plane incision was then created temporally, utilizing a 2.85 mm keratome. Capsulotomy forceps were then utilized to create a circular tear capsulotomy. Hydrodissection and hydrodelineation were carried out until adequate mobilization of the nucleus occurred. Phacoemulsification was then utilized to remove the dense central nu cleus followed by removal of the cortical material utilizing the automated aspiration irrigation unit. Viscoelastic was instilled into the posterior capsular bag followed by placement of a posterior chamber intraocular lens without difficulty. The residual Viscoelastic was then removed utilizing the automated IA machine. The wound was checked and found to be watertight. The patient tolerated the procedure well and the lid speculum was removed. Intracameral injection of Vigamox 0.1 mL followed by a subtenon injection of Kenalog-40 0.2 mL were administered. The patient will be seen in the a.m.
[2024-05-11 11:21] VITALS: BP 133/67; PULSE 66; RESP 16; TEMP 36.1; O2SAT 99
== END 2024-05-11 11:23 | disposition home or self-care (01) ==
PROVIDERS: PCP Internal Medicine; Visit Provider Ophthalmology
PROC: (CPT 66985; principal; 2024-05-11 12:00)
DX: H25.11 Age-related nuclear cataract, right eye (principal); H52.4 Presbyopia; H18.413 Arcus senilis, bilateral; H11.153 Pinguecula, bilateral; H04.123 Dry eye syndrome of bilateral lacrimal glands; I10 Essential (primary) hypertension; E78.00 Pure hypercholesterolemia, unspecified; M81.0 Age-related osteoporosis without current pathological fracture; G89.29 Other chronic pain; M54.9 Dorsalgia, unspecified; Z79.891 Long term (current) use of opiate analgesic; Z79.899 Other long term (current) drug therapy
CPT/HCPCS: 66984; J2250; J3301; V2630

== ENCOUNTER 2025-04-30 12:13 | Outpatient (AMB) | payer MEDICARE, SELFPAY ==
--- OUTSIDE RECORDS SUMMARY | 2025-04-29 08:57 | XMS_ITS | Encounter Summary ---
Author Organization [facility] Address [address] [place] [address] Care Team Providers Care Veterinary Assistant Name Role Phone Jose Benavidez MD Primary Care Provider [phone] Reason for Referral * Imaging (Routine) - Authorized Specialty Diagnoses / Procedures Referred By Contac t Referred To Contact Radiology Diagnoses Osteoporosis without current pathological fracture, unspecified osteoporosis type Procedures BD Bone Density DXA Axial Skeleton Alanna Le MD [address] [place] [address] Phone: tel: fax: [facility] Referral ID Status Reason Start Date Expiration Date V isits Requested Visits Authorized [id number] Authorized 10/19/2024 10/19/2025 1 1 Reason for Visit * Imaging (Routine) - Authorized Specialty Diagnoses / Procedures Referred By Contac t Referred To Contact Radiology Diagnoses Osteoporosis without current pathological fracture, unspecified osteoporosis type Procedures BD Bone Density DXA Axial Skeleton Alanna Le MD [address] [place] [address] Phone: tel: fax: [facility] Referral ID Status Reason Start Date Expiration Date V isits Requested Visits Authorized [id number] Authorized 10/19/2024 10/19/2025 1 1 Encounter Details Date Type Department Care Team (Latest Contact Info) Description 04/29/2025 8:57 AM EST - 04/29/2025 11:59 PM EST Hospital Encounter [facility] Bone Density [address] [place] [address] Osteoporosis without current pathological fracture, unspecified osteoporosis type Discharge Disposition: Home or Self Care Social History Tobacco Use Types Packs/Day Years Used Date Smoking Tobacco: Never Smokeless Tobacco: Never Alcohol Use Standard Drinks/Week Comments Not Currently 0 (1 standard drink = 0.6 oz pur e alcohol) Housing Instability Answer Date Recorde d Are you worried that in the next 2 months you may not have stable housing? No 08/18/2024 Food Access & Nutrition Answer Date Rec orded Do you have access to a vari ety of food including fruits and vegetables? Yes 08/18/2024 Access to Healthcare Answer Date Record ed Within the last 3 months, ho w many times did you visit the emergency department for your medical care? 0 08/18/2024 Health Literacy Answer Date Recorded How often do you need to hav e someone help you when you read instructions, pamphlets, or other written material from your doctor or pharmacy? Never 08/18/2024 Caregiver: How often do you need to have someone help you when you read instructions, pamphlets, or other written material from your doctor or pharmacy? Not on file 08/18/2024 Financial Risk Answer Date Recorded How hard is it for you to pa y for the very basics like food, housing, medical care, and air conditioning / heating? Not very hard 08/18/2024 Transportation Answer Date Recorded Has the lack of transportati on kept you from meetings, work, or from getting things needed for daily living? No Has the lack of transportati on kept you from medical appointments or from getting medications? No 08/18/2024 Social Isolation Answer Date Recorded How often do you feel lonely or isolated from th ose around you? Never 08/18/2024 Food Risk Answer Date Recorded Within the past 12 months we worried whether our food would run out before we got money to buy more. Never true 08/18/2024 Within the past 12 months th e food we bought just didn't last and we didn't have money to get more. Never true 08/18/2024 Dependent Care Answer Date Recorded Do you need help finding or paying for care for your loved ones. For example, children's nursery assistant or elderly care for an older adult? No 08/18/2024 Education Answer Date Recorded Do you think completing more education or training, like finishing a GED, going to college, or learning a trade, would be helpful for you? No 08/18/2024 Employment and Income Answer Date Recor ded During the last four weeks, have you been actively looking for work? No 08/18/2024 Living Situation Answer Date Recorded What is your living situation? Unrecognized valu e 08/18/2024 Interpersonal Safety Answer Date Record ed Physical Abuse Unrecognized value 03/05/2025 Verbal Abuse Unrecognized value 03/05/2025 Comments No Sex and Gender Information Value Date Recorded Sex Assigned at Not on file Legal Sex Female 12:24 AM EST Gender Identity Not on file Sexual Orientation Not on file documented as of this encounter Medications at Time of Discharge atorvastatin (LIPITOR) 40 mg tablet Take 1 tablet (40 mg total) by mouth at bedtime. 90 tablet 1 04/19/2025 bisacodyL (DULCOLAX) 5 mg EC tablet Take 2 tablets by mouth right before beginning bowel prep. See instructions provided by the office 2 tablet 02/19/2025 denosumab (PROLIA) 60 mg/mL syringe syringe Inj Every 6 months 05/03/2023 folic acid (FOLVITE) 1 mg tablet Take 1 tablet (1,000 mcg total) by mouth 1 (one) time each day. 90 tablet 1 04/07/2025 hydroCHLOROthiaz isabella (HYDRODIURIL) 25 mg tablet Take 1 tablet (25 mg total) by mouth 1 (one) time each day. 90 tablet 03/03/2025 lisinopriL (PRINIVIL,ZESTRI L) 10 mg tablet Take 1 tablet (10 mg total) by mouth 1 (one) time each day. 90 tablet 03/03/2025 LORazepam (ATIVAN) 0.5 mg tablet Take 1 tablet (0.5 mg total) by mouth 2 (two) times a day if needed for anxiety. Max Daily Amount: 1 mg 60 tablet 2025 nystatin (MYCOSTATIN) 100,000 unit/gram powder Apply thin layer to affected area BID for 2 weeks then stop. 30 g 03/09/2025 omeprazole (PriLOSEC) [address] capsule Take 1 capsule (20 mg total) by mouth 1 (one) time each day. Do not crush or chew. 90 capsule 1 03/29/2025 oxyCODONE (ROXICODONE) 5 mg immediate release tablet Take 1 tablet (5 mg total) by mouth 1 (one) time each day if needed for moderate pain. Max Daily Amount: 5 mg 28 tablet 04/07/2025 sertraline (ZOLOFT) 50 mg tablet Take 1 tablet (50 mg total) by mouth 1 (one) time each day. Take 1/2 for 7 days increase to full tablet if tolerates 90 tablet 1 03/09/2025 5 documented as of this encounter Discharge Disposition Disposition Code Departure Means Destination Home or Self Care documented in this encounter Plan of Treatment Upcoming Encounters Date Type Department Care Team (Late st Contact Info) Description 06/25/2025 8:00 AM EST Office Visit Adult [address] [phone] Jose Benavidez MD [address] [place] [address] documented as of this encounter Procedures Procedure Name Priority Date/Time Associated Diagnosis Comments BD BONE DENSITY DXA AXIAL SKELETON Routine 04/29/2025 9:39 AM EST Osteoporosis without current pathological fracture, unspecified osteoporosis type documented in this encounter Results * BD Bone Density DXA Axial Skeleton (04/29/2025 9:39 AM EST) Anatomical Region Laterality Modality Wrist, Hip, L-spine Bone Densito metry 04/29/2025 9:59 AM EST Impressions 04/29/2025 10:00 AM EST 1. Osteopenia. 2. FRAX analysis yields a 10-year probability of major osteoporotic fracture of 17.0% and a 10-year probability of hip fracture of 5.8%. Code 41835 -------- FINAL REPORT -------- Dictated By: Db Garcias Dictated Date: 04/29/2025 09:59 ET Assigned Physician: Db Garcias Reviewed and Electronically Signed By: Db Garcias Signed Date: 04/29/2025 10:00 ET Workstation ID: [id number] Transcribed By: Self Edit Transcribed Date: 04/29/2025 09:59 ET Narrative 04/29/2025 10:00 AM EST HISTORY: The patient is an 80-year-old postmenopausal female with clinical concern for metabolic bone disease. FINDINGS: Dual energy x-ray absorptiometry of the lumbar spine and femurs is performed. The mean bone mineral density at L1-L4 (with the exclusion of L2 and L3) is 0.971 gm/cm2 which is 83% of that of young normals and 108% of that of age matched controls. This yields a T-score of -1.6 and a Z-score of 0.6 which is diagnostic of osteopenia. The mean bone mineral density of the femurs bilaterally is 0.769 gm/cm2 which is 76% of that of young normals and 107% of that of age matched controls. This yields a T-score of -1.9 and a Z-score of 0.4 which is diagnostic of osteopenia. The T-score of the right femoral neck is -2.3 and that of the left femoral neck is -2.3 which is diagnostic of osteopenia. Procedure Note Db Garcias MD - 04/29/2025 HISTORY: The patient is an 80-year-old postmenopausal female withclinical concern for metabolic bone disease. FINDINGS: Dual energy x-ray absorptiometry of the lumbar spine and femursis performed. The mean bone mineral density at L1-L4 (with the exclusionof L2 and L3) is 0.971 gm/cm2 which is 83% of that of young normals [id number]% of that of age matched controls. This yields a T-score of -1.6 and aZ-score of 0.6 which is diagnostic of osteopenia. The mean bone mineral density of the femurs bilaterally is 0.769 gm/is2vufxm is 76% of that of young normals and 107% of that of age matchedcontrols. This yields a T-score of -1.9 and a Z-score of 0.4 which isdiagnostic of osteopenia. The T- score of the right femoral neck is -2.3and that of the left femoral neck is -2.3 which is diagnostic ofosteopenia. IMPRESSION: 1. Osteopenia. 2. FRAX analysis yields a 10-year probability of major osteoporoticfracture of 17.0% and a 10-year probability of hip fracture of 5.8%. Code 66246 -------- FINAL REPORT -------- Dictated By: Db Garcias Dictated Date: 04/29/2025 09:59 ET Assigned Physician: Db Garcias Reviewed and Electronically Signed By: Db Garcias Signed Date: 04/29/2025 10:00 ET Workstation ID: [id number] Transcribed By: Self Edit Transcribed Date: 04/29/2025 09:59 ET Alanna eL MD IM DXA PROCEDURES Final Result documented in this encounter Visit Diagnoses Diagnosis Osteoporosis without current pathological fracture, unspecified osteoporosis type documented in this encounter Additional Health Concerns Assessment Noted Time PHQ-9 Depression Total Score: 0 08/19/19 25 9:49 AM EDT A fall risk assessment has been complete d for the patient 08/24/2024 2:44 PM EDT documented as of this encounter Care Teams Veterinary Assistant Relationship Specialty Start Date End Date Jose Benavidez MD [address] [place] [id number] PCP - General Internal Medicine 06/15/20 documented as of this encounter
--- OUTSIDE RECORDS SUMMARY | 2025-04-30 12:45 | XMS_ITS | Clinical Summary ---
Author Organization [address] Address [address] [place] [phone] Phone Care Team Providers Care Senior Systems Administrator Name Role Phone Jose Benavidez MD Primary Care Provider [phone] Allergies Active Allergy Reactions Criticality Noted Date Comments Fluconazole Headache,Nausea And Vomiting 2008 Medications denosumab (PROLIA) 60 mg/mL syringe syringe Inj Every 6 months 05/03/20 23 Active hydrOXYzine HCL (ATARAX) 25 mg tablet Take 1 tablet (25 mg total) by mouth every 6 (six) hours if needed for itching. 60 each 02/10/20 25 Active bisacodyL (DULCOLAX) 5 mg EC tablet Take 2 tablets by mouth right before beginning bowel prep. See instructions provided by the office 2 tablet 02/20/20 25 Active lisinopriL (PRINIVIL,ZEST RIL) 10 mg tablet Take 1 tablet (10 mg total) by mouth 1 (one) time each day. 90 tablet 03/03/20 25 Active hydroCHLOROthi azide (HYDRODIURIL) 25 mg tablet Take 1 tablet (25 mg total) by mouth 1 (one) time each day. 90 tablet 03/03/20 25 Active nystatin (MYCOSTATIN) 100,000 unit/gram powder Apply thin layer to affected area BID for 2 weeks then stop. 30 g 03/09/20 25 Active sertraline (ZOLOFT) 50 mg tablet Take 1 tablet (50 mg total) by mouth 1 (one) time each day. Take 1/2 for 7 days increase to full tablet if tolerates 90 tablet 1 03/09/20 25 Active omeprazole (PriLOSEC) [address] capsule Take 1 capsule (20 mg total) by mouth 1 (one) time each day. Do not crush or chew. 90 capsule 1 03/29/20 25 Active folic acid (FOLVITE) 1 mg tablet Take 1 tablet (1,000 mcg total) by mouth 1 (one) time each day. 90 tablet 1 04/07/20 25 Active oxyCODONE (ROXICODONE) 5 mg immediate release tablet Take 1 tablet (5 mg total) by mouth 1 (one) time each day if needed for moderate pain. Max Daily Amount: 5 mg 28 tablet 04/07/20 25 Active LORazepam (ATIVAN) 0.5 mg tablet Take 1 tablet (0.5 mg total) by mouth 2 (two) times a day if needed for anxiety. Max Daily Amount: 1 mg 60 tablet 04/08/20 25 Active atorvastatin (LIPITOR) 40 mg tablet Take 1 tablet (40 mg total) by mouth at bedtime. 90 tablet 1 04/19/20 25 Active folic acid (FOLVITE) 1 mg tablet Take 1 tablet (1,000 mcg total) by mouth 1 (one) time each day. 90 tablet 1 10/22/19 25 025 Discontinu ed(Reorder ) atorvastatin (LIPITOR) 40 mg tablet Take 1 tablet (40 mg total) by mouth at bedtime. 90 tablet 11/20/19 25 025 Discontinu ed(Reorder ) oxyCODONE (ROXICODONE) 5 mg immediate release tablet Take 1 tablet (5 mg total) by mouth 1 (one) time each day if needed for moderate pain. Max Daily Amount: 5 mg 28 tablet 03/09/20 25 025 Discontinu ed(Reorder ) LORazepam (ATIVAN) 0.5 mg tablet Take 1 tablet (0.5 mg total) by mouth 2 (two) times a day if needed for anxiety. Max Daily Amount: 1 mg 60 tablet 03/09/20 25 025 Discontinu ed(Reorder ) ondansetron (ZOFRAN) 4 mg tabletIndicati ons:Nausea Take 1 tablet (4 mg total) by mouth every 8 (eight) hours if needed for nausea or vomiting for up to 7 days. 20 tablet 04/05/20 25 025 Discontinu ed(Reorder ) ondansetron (ZOFRAN) 4 mg tabletIndicati ons:Nausea Take 1 tablet (4 mg total) by mouth every 8 (eight) hours if needed for nausea or vomiting for up to 7 days. 20 tablet 04/07/20 25 025 Discontinu ed(Reorder ) ondansetron (ZOFRAN) 4 mg tabletIndicati ons:Nausea Take 1 tablet (4 mg total) by mouth every 8 (eight) hours if needed for nausea or vomiting for up to 7 days. 20 tablet 04/07/20 25 025 Hospital, Clinic, or Other Facility Administered Medication Ordered Dose Route Frequency Start Date End Date Status ondansetron (ZOFRAN) tablet 4 mgIndications:Nausea 4 mg oral Every 8 hours 05/14/2024 A ctive Active Problems Problem Noted Date Diagnosed Date Weight loss 01/19/2025 Pain in joint of left shoulder 04/09/2024 Scar conditions and fibrosis of skin 12/31/2023 Acromioclavicular joint arthritis 09/13/2023 Osteoarthritis of glenohumeral joint 09/13/2023 Subacromial bursitis of left shoulder joint 10/2023 Tendinitis of left shoulder 09/11/2023 H/O skin disorder 08/29/2023 Asteatosis cutis 08/29/2023 Intertrigo 08/29/2023 Hearing loss 01/10/2023 Nonthrombocytopenic purpura ([facility] V24) 2022 Cough 10/01/2022 Nausea 10/01/2022 Gastroesophageal reflux disease without esophagi tis 05/24/2021 Disorder of pigmentation 09/22/2020 Rosacea 09/22/2020 Actinic keratosis 04/21/2019 Pulmonary nodule 04/05/2019 Melanoma ([facility] V24, [facility] V28) 11/09/2018 Overview (03/04/2024): Excised from left breast, 10/10/2018 Osteoporosis 10/26/2018 Overview (03/04/2024): T score -2.6 left hip, 10/28/2017 Follows [facility] Neoplasm of uncertain behavior of skin 9 Diverticulitis 10/25/2014 Overview (03/04/2024): 10/01/2014. Radiculitis, lumbosacral 11/29/2010 Assessment & Plan (08/24/2024 3:20 PM EDT): Kidney stones 06/29/2009 Overview (03/04/2024): Age 17 Mononucleosis 06/29/2009 Overview (03/04/2024): Age 17 Hyperlipidemia 04/28/2007 Assessment & Plan (08/24/2024 3:20 PM EDT): Orders: Lipid panel with reflex to direct LDL; Future Other emphysema (CMS/HCC V24, CMS/HCC V28) 03/26 Abdominal pain, epigastric 02/27/2006 Overview (03/04/2024): chronic abdominal pain. Normal endoscopy 02.27.06. Normal abdominal ultrasound. Adjustment disorder 04/19/2005 Hypertension 04/19/2005 Assessment & Plan (08/24/2024 3:20 PM EDT): Orders: Comprehensive metabolic panel; Future Encounters Date Type Department Care Team Description 04/29/2025 8:57 AM EST - 04/29/2025 11:59 PM EST Hospital Encounter [facility] Bone Density [address] [place] [address] Osteoporosis without current pathological fracture, unspecified osteoporosis type Discharge Disposition: Home or Self Care 2025 9:30 AM EDT Office Visit Adult Medicine [address] [phone] Yelena Sun PA Anxiety (Primary Dx) 03/26/2025 Telephone Adult Medicine [address] [phone] Jose Benavidez MD 03/16/2025 Results Follow-Up [address] [phone] Jose Benavidez MD 03/09/2025 8:30 AM EDT Office Visit [address] [phone] Jose Benavidez MD Anxiety (Primary Dx); Primary hypertension; Pure hypercholesterolemia ; Radiculitis, lumbosacral; Encounter for long-term (current) use of high-risk medication; Need for prophylactic vaccination and inoculation against influenza; S/P partial colectomy; History of creation of ostomy ([facility] V24, [facility] V28) 03/05/2025 2:09 PM EDT Anesthesia Event [facility] Endoscopy [address] [place] [phone] Alex West MD 03/05/2025 1:11 PM EDT - 03/05/2025 11:59 PM EDT Hospital Encounter [facility] Endoscopy [address] [place] [phone] Cosme Menendez MD Dasilva, John E, MD Nausea; Weight loss; Diverticulitis Discharge Disposition: Home or Self Care 02/09/2025 Telephone Adult Medicine [address] [phone] Adriana Myles [place] 02/04/2025 Telephone Gastroenterology - [address] [facility] [address] [phone] Cosme Menendez MD from Last 3 Months Immunizations Immunization Administration Dates Next Due H1N1 Inj Preservative Free 06/29/2009 Influenza Quadravalent, MDCK , 0.5ml, preservative free (Flucelvax) 6mo and older 03/16/2021 Influenza trivalent, 0.5mL ( Fluad) 65yo and older 03/09/2025,02/26/2024 Influenza trivalent, 0.5mL ( Fluzone High-dose) 65yo and older 03/10/2023,04/03/2022,02/14/2020,03/31,03/30/2018,04/01/2017 Influenza trivalent, with pr eservative (Fluzone; Afluria) 6mo and older 03/03/2016,04/04/2015,04/01/2014,05/22,03/13/2011,03/06/2010,05/15/2009 ,04/10/2007 Pfizer SARS-CoV-2 COVID-19, mRNA, LNP-S, preservative free 04/13/2021 Pneumococcal conjugate 13 va lent (Prevnar 13, PCV13) 2mo and older 07/18/2016 Pneumococcal polysaccharide 23 valent (Pneumovax 23) 2yo and older 07/25/2011 RSV, bivalent, protein subun it RSVpreF, 0.5mL, Preservative Free (Arexvy) 50yo and older 03/23/2023 Td Tetanus diptheria (Tdvax) 7yo and older 12/09/2002 Tdap Tetanus diptheria acell ular pertussis (Boostrix; Adacel) 7yo and older 07/18/2016 Zoster Live 02/06/2012 Zoster recombinant (Shingrix ) 19yo and older 05/10/2022,12/21/2020,10/05/2020 Surgical History Surgery Date Site/Laterality Comments TONSILLECTOMY 1950 PROCEDURE: HISTORICAL TONSILLECTOMY COLONOSCOPY 2004 PROCEDURE: HISTORICAL COLONOSCOPY; COMMENT: negative ESOPHAGOGASTRODUODENOSCOPY 2005 PROCEDURE: [place] ESOPHAGOGASTRODUODENOSCOPY TRANSORAL DIAGNOSTIC; COMMENT: negative COLONOSCOPY 2014 PROCEDURE: HISTORICAL COLONOSCOPY; COMMENT: no polyps MULTIPLE TOOTH EXTRACTIONS PROCEDURE: HISTORICAL DENTAL EXTRACTION SHOULDER SURGERY Right ROTATOR CUFF REPAIR Left COLECTOMY PARTIAL Medical History Medical History Date Comments Bipolar disorder, unspecifie d ([facility] V24, [facility] V28) DX:Bipolar disorder, unspeci fied ([facility]) Pain in joint, shoulder region D X:Pain in joint, shoulder region Abdominal pain, epigastric 02/27/2006 DX:Ab dominal pain, epigastric; COMMENT: chronic abdominal pain. Normal endoscopy 02.27.06. Normal abdominal ultrasound. Bronchitis, not specified as acute or chronic DX:Bronchitis, not specified as acute or chronic Calculus of kidney DX:Calculus o f kidney Diverticulitis 10/25/2014 DX:Diverticuliti s; COMMENT: 10/01/2014. Hyperlipidemia 04/28/2007 DX:Hyperlipidemi a Hypertension 04/19/2005 DX:Hypertension Other emphysema ([facility] V24 , [facility] V28) 03/26/2007 DX:Other emphysema ([facility]) Radiculitis, lumbosacral 11/29/2010 DX:Radi culitis, lumbosacral Mononucleosis 06/29/2009 DX:Mononucleosis ; COMMENT: Age 17 Kidney stones 06/29/2009 DX:Kidney stones ; COMMENT: Age 17 Gastroesophageal reflux dise ase without esophagitis 05/24/2021 DX:Gastroesophageal reflux d isease without esophagitis History of creation of ostom y ([facility] V24, [facility] V28) Cataracts, bilateral Family History Medical History Relation Name Comments Kidney cancer Brother Lung cancer Father Arthritis Maternal Grandmother Arthritis Mother OA Heart attack Mother age 69 Blindness Neg Hx Breast cancer Neg Hx Cataracts Neg Hx Colon cancer Neg Hx Crohn's disease Neg Hx Glaucoma Neg Hx Macular degeneration Neg Hx Strabismus Neg Hx Relation Name Status Comments Brother Father Maternal Grandmother Mother Social History Tobacco Use Types Packs/Day Years Used Date Smoking Tobacco: Never Smokeless Tobacco: Never Tobacco Cessation:Counseling Given: Not Answered Alcohol Use Standard Drinks/Week Comments Not Currently [...] care for your loved ones. For example, early childhood associate or elderly care for an older adult? [...] on file Sexual Orientation Not on file Obstetrics History Last Filed Vital Signs Vital Sign Reading Time Taken Comments Blood Pressure 100/60 2025 9:19 AM EDT Pulse 80 2025 9:19 AM EDT Temperature 36.4 C (97.6 F) 2025 9:19 AM EDT Respiratory Rate 14 03/09/2025 8:13 AM EDT Oxygen Saturation 98% 2025 9:19 AM EDT Inhaled Oxygen Concentration - - Weight 56.5 kg (124 lb 9.6 oz) 2025 9:19 A M EDT Height 157.5 cm (5' 2.01 ) 2025 9:19 AM ED T Body Mass Index 22.78 2025 9:19 AM EDT Plan of Treatment Upcoming Encounters Date Type Department Care Team (Late st Contact Info) Description 06/25/2025 8:00 AM EST Office Visit Adult Medicine [facility] [address] [place] [address] Jose Benavidez MD [address] [place] [address] Health Maintenance Due Date Last Done Comments COVID-19 Vaccine ( season) 2025 03/23/2023, 09/26/2021, 04/13/2021, Additional history exists Social Influencers of Health Screening 08/18/2025 08/18/2024 Medicare Annual Wellness Visit 08/24/2025 08/24/2024 Falls Risk Assessment 03/05/2026 03/05/2025 , 08/24/2024, 10/23/2023 Hypertension/CHF/CAD Annual BMP Blood Test 03/09/2026 03/09/2025, 10/19/2024, 10/09/2024, Additional history exists DTaP,Tdap,and Td Vaccines (3 - Td or Tdap) 07/18/2026 07/18/2016, 12/09/2002 Cholesterol Screening (Lipid Panel) 03/09/2030 03/09/2025, 08/24/2024, 02/20/2024, Additional history exists Osteoporosis Screening (Bone Density Screening) 04/29/2035 04/29/2025, 04/22/2023, 02/20/2021, Additional history exists Pneumococcal Vaccine: 50+ Years Completed 07/18/2016, 07/25/2011 Zoster Vaccines Completed 05/10/2022, 12/08, 10/05/2020, Additional history exists RSV Immunization Adult Patients Completed 03/23/2023 Depression Screening Completed 02/22/2025, 08/22/19 Influenza Vaccine Completed 03/09/2025, , 03/10/2023, Additional history exists HIB Vaccines Aged Out No longer eligi ble based on patient's age to complete this topic HPV Vaccines Aged Out No longer eligi ble based on patient's age to complete this topic Hepatitis A Vaccines Aged Out No long er eligible based on patient's age to complete this topic Hepatitis B Vaccines Aged Out No long er eligible based on patient's age to complete this topic IPV Vaccines Aged Out No longer eligi ble based on patient's age to complete this topic MMR Vaccines Aged Out No longer eligi ble based on patient's age to complete this topic Meningococcal ACWY Vaccine Aged Out N o longer eligible based on patient's age to complete this topic Meningococcal B Vaccine Aged Out No l onger eligible based on patient's age to complete this topic RSV Immunization Patients Under 20 months Aged Out No longer eligible based on patient's age to complete this topic Varicella Vaccines Aged Out No longer eligible based on patient's age to complete this topic Procedures Procedure Name Priority Date/Time Associated Diagnosis Comments BD BONE DENSITY DXA AXIAL SKELETON Routine 04/29/2025 9:39 AM EST Osteoporosis without current pathological fracture, unspecified osteoporosis type LIPID PANEL WITH REFLEX TO DIRECT LDL Routine 03/09/2025 9:03 AM EDT Pure hypercholesterolemia COMPREHENSIVE METABOLIC PANEL Routine 03/09/2025 9:03 AM EDT Primary hypertension Encounter for long-term (current) use of high-risk medication COLONOSCOPY Routine 03/05/2025 2:37 PM EDT Nausea Weight loss Diverticulitis EGD Routine 03/05/2025 2:37 PM EDT Nausea Weight loss Diverticulitis FALLS RISK ASSESSMENT Routine 10/23/2023 DEPRESSION SCREENING Routine 08/22/2023 from Last 3 Months or Most Recently Relevant to Health Maintenance Results * BD Bone Density DXA Axial Skeleton (04/29/2025 9:39 AM EST) Anatomical Region Laterality Modality Wrist, Hip, L-spine Bone Densito metry 04/29/2025 9:59 AM EST Impressions 04/29/2025 10:00 AM EST 1. Osteopenia. 2. FRAX analysis yields a 10-year probability of major osteoporotic fracture of 17.0% and a 10-year probability of hip fracture of 5.8%. Code 63217 -------- FINAL REPORT -------- Dictated By: Db Garcias Dictated Date: 04/29/2025 09:59 ET Assigned Physician: Db Garcias Reviewed and Electronically Signed By: Db Garcias Signed Date: 04/29/2025 10:00 ET Workstation ID: [id number] Transcribed By: Self Edit Transcribed Date: 04/29/2025 [...] is 83% of that of young normals [id number]% of that of age matched controls. This yields a T-score of -1.6 and aZ-score of 0.6 which is diagnostic of osteopenia. The mean bone mineral density of the femurs bilaterally is 0.769 gm/pt5qadqt is 76% of that of young normals [...] probability of hip fracture of 5.8%. Code 13175 -------- FINAL REPORT -------- Dictated By: Db Garcias Dictated Date: 04/29/2025 09:59 ET Assigned Physician: Db Garcias Reviewed and Electronically Signed By: Db Garcias Signed Date: 04/29/2025 10:00 ET Workstation ID: [id number] Transcribed By: Self Edit Transcribed Date: 04/29/2025 09:59 ET Alanna Le MD IM DXA PROCEDURES Final Result * (ABNORMAL) Lipid panel with reflex to direct LDL (03/09/2025 9:03 AM EDT) Cholesterol 226(H) 0 - 200 mg/dL LAB CHEMISTRY METHOD 03/09/2025 12:52 PM EDT [facility] Triglycerides 146 0 - 150 mg/dL LAB CHEMISTRY METHOD 03/09/2025 12:52 PM EDT [facility] HDL 68 >=40 mg/dL LAB CHEMISTRY METHOD 03/09/2025 12:52 PM EDT [facility] LDL Calculated 129(H) 0 - 100 mg/dL LAB CHEMISTRY METHOD 03/09/2025 12:52 PM EDT [facility] Comment:Estimated LDL Calcul ated using equation: Total cholesterol - HDL cholesterol - (Triglycerides/5) VLDL Cholesterol Ankit 29.2 mg/dL LAB CHEMISTRY METHOD 03/09/2025 12:52 PM T [facility] Non HDL Chol. (LDL+VLDL) 158(H) <145 mg/dL LAB CHEMISTRY METHOD 03/09/2025 12:52 PM [facility] Chol/HDL Ratio 3.3 0.0 - 4.4 LAB CHEMISTRY METHOD 03/09/2025 12:52 PM T [facility] Blood Venous blood specimen / Unknown Venipuncture / Unknown 03/09/2025 9:03 AM EDT 03/09/2025 9:04 AM EDT us Jose Benavidez MD LAB BLOOD ORDERABLES Final Resu lt [facility] [address] [place] [address], * (ABNORMAL) Comprehensive metabolic panel (03/09/2025 9:03 AM EDT) Sodium 133 133 - 145 mmol/L LAB CHEMISTRY METHOD 03/09/2025 1:06 PM [facility] Potassium 4.5 3.5 - 5.5 mmol/L LAB CHEMISTRY METHOD 03/09/2025 1:06 PM [facility] Chloride 101 96 - 110 mmol/L LAB CHEMISTRY METHOD 03/09/2025 1:06 PM [facility] CO2 23 21 - 32 mmol/L LAB CHEMISTRY METHOD 03/09/2025 1:06 PM [facility] Anion Gap 9 3 - 11 LAB CHEMISTRY METHOD 03/09/2025 1:06 PM [facility] Glucose 113(H) 70 - 100 mg/dL LAB CHEMISTRY METHOD 03/09/2025 1:06 PM [facility] BUN 22 5 - 25 mg/dL LAB CHEMISTRY METHOD 03/09/2025 1:06 PM [facility] Creatinine 1.19(H) 0.50 - 1.10 mg/dL LAB CHEMISTRY METHOD 03/09/2025 1:06 PM [facility] eGFR 47(L) >=60 mL/min/1. 73m2 LAB CHEMISTRY METHOD 03/09/2025 1:06 PM [facility] Comment:Calculation based on the Chronic Kidney Disease Epidemiology Collaboration (CKD-EPI) equation refit without adjustment for race. BUN/Creatinine Ratio 18.5 LAB CHEMISTRY METHOD 03/09/2025 1:06 PM [facility] Calcium 10.4 8.5 - 10.5 mg/dL LAB CHEMISTRY METHOD 03/09/2025 1:06 PM [facility] AST (SGOT) 40 10 - 42 unit/L LAB CHEMISTRY METHOD 03/09/2025 1:06 PM [facility] ALT (SGPT) 95(H) 10 - 60 unit/L LAB CHEMISTRY METHOD 03/09/2025 1:06 PM [facility] Alkaline Phosphatase 75 42 - 121 unit/L LAB CHEMISTRY METHOD 03/09/2025 1:06 PM [facility] Total Protein 7.0 6.0 - 8.0 g/dL LAB CHEMISTRY METHOD 03/09/2025 1:06 PM [facility] Albumin 4.0 3.2 - 5.0 g/dL LAB CHEMISTRY METHOD 03/09/2025 1:06 PM [facility] Total Bilirubin 0.2 0.0 - 1.4 mg/dL LAB CHEMISTRY METHOD 03/09/2025 1:06 PM [facility] Blood Venous blood specimen / Unknown Venipuncture / Unknown 03/09/2025 9:03 AM EDT 03/09/2025 9:04 AM EDT us Jose Benavidez MD LAB BLOOD ORDERABLES Final Resu lt [facility] [address] [place] [address], * COLONOSCOPY Anesthesia - MAC; [facility] ENDOSCOPY (03/05/2025 2:37 PM EDT) Anatomical Region Laterality Modality Other 03/05/2025 2:10 PM EDT Impressions 03/05/2025 2:32 PM EDT - Diverticulosis in the descending colon. - The examination was otherwise normal. - No specimens collected. Recommendation: - To proceed with colostomy reversal Narrative 03/05/2025 2:32 PM EDT [facility] GI Patient Name: Nikia Wong Procedure Date: 03/05/2025 2:10 PM Date of : 1945 Age: 79 Room: ROOM 14 Gender: Female Note Status: Finalized Attending MD: Cosme Menendez MD, Procedure Date No Time: 03/05/2025 Procedure: Colonoscopy Indications: Follow-up of diverticulitis Providers: Cosme Menendez MD Referring MD: Cosme Menendez MD Medicines: Propofol per Anesthesia Complications: No immediate complications. Estimated Blood Loss: Estimated blood loss: none. Estimated blood loss: none. Procedure: Pre-Anesthesia Assessment: - ASA Grade Assessment: II - A patient with mild systemic disease. After I obtained informed consent, the scope was passed under direct vision. Throughout the procedure, the patient's blood pressure, pulse, and oxygen saturations were monitored continuously.The Olympus Pediatric Colonoscope was introduced through the sigmoid colostomy and advanced to the cecum, identified by appendiceal orifice and ileocecal valve. The colonoscopy was performed without difficulty. The patient tolerated the procedure well. The quality of the bowel preparation was good. Ths scope was then introduced through the anus. The rectum was grossly normal but full of mucus and difficult to evaluate otherwise.She was on her back, making intubation a challenge. Findings: Multiple diverticula were found in the descending colon. The exam was otherwise without abnormality. Procedure Code(s): --- Professional --- 23917, Colonoscopy through stoma; diagnostic, including collection of specimen(s) by brushing or washing, when performed (separate procedure) Diagnosis Code(s): --- Professional --- K57.32, Diverticulitis of large intestine without perforation or abscess without bleeding K57.30, Diverticulosis of large intestine without perforation or abscess without bleeding CPT copyright 2020 [employer]. All rights reserved. The codes documented in this report are preliminary and upon supervisor cigar making hand review may be revised to meet current compliance requirements. Cosme Menendez MD 03/05/2025 2:32:43 PM This report has been signed electronically.Cosme Menendez MD Number of Addenda: 0 Note Initiated On: 03/05/2025 2:10 PM Scope In: Scope Out: Endoscopy Department at [facility] - [address] [place] [id number] Procedure Note Cosme Menendez MD - 03/05/2025 [facility] GI Patient Name: Nikia Wong Procedure Date: 03/05/2025 2:10 PM Date of : 1945 Age: 79 Room: ROOM 14 Gender: Female Note Status: Finalized Attending MD: Cosme Menendez MD, Procedure Date No Time: 03/05/2025 Procedure: Colonoscopy Indications: Follow-up of diverticulitis Providers: Cosme Menendez MD Referring MD: Cosme Menendez MD Medicines: Propofol per Anesthesia Complications: No immediate complications. Estimated Blood Loss: Estimated blood loss: none. Estimated blood loss: none. Procedure: Pre-Anesthesia Assessment: - ASA Grade Assessment: II - A patient with mild systemic disease. After I obtained informed consent, the scope was passed under direct vision. Throughout theprocedure, the patient's blood pressure, pulse, and oxygen saturations were monitored continuously.The Olympus Pediatric Colonoscope was introduced through the sigmoid colostomy and advanced to the cecum, identified by appendiceal orifice and ileocecalvalve. The colonoscopy was performed without difficulty.The patient tolerated the procedure well. The qualityof the bowel preparation was good. Ths scope was then introduced through the anus. The rectum was grossly normal but full of mucus and difficult to evaluate otherwise.She was on herback, making intubation a challenge. Findings: Multiple diverticula were found in the descending colon. The exam was otherwise without abnormality. Procedure Code(s): --- Professional --- 85235, Colonoscopy through stoma; diagnostic, including collection of specimen(s) by brushing or washing, when performed (separate procedure) Diagnosis Code(s): --- Professional --- K57.32, Diverticulitis of large intestine without perforation or abscess without bleeding K57.30, Diverticulosis of large intestine without perforation or abscess without bleeding CPT copyright 2020 [employer]. All rights reserved. The codes documented in this report are preliminary and upon supervisor cigar making hand reviewmay be revised to meet current compliance requirements. Cosme Menendez MD 03/05/2025 2:32:43 PM This report has been signed electronically.Cosme Menendez MD Number of Addenda: 0 Note Initiated On: 03/05/2025 2:10 PM Scope In: Scope Out: Endoscopy Department at [facility] - [address] [place] [id number] IMPRESSION: - Diverticulosis in the descending colon. - The examination was otherwise normal. - No specimens collected. Recommendation: - To proceed with colostomy reversal us Cosme Menendez MD GI~PROCEDURE ORDERABLES Fin al Result * EGD Anesthesia - MAC; [facility] ENDOSCOPY (03/05/2025 2:37 PM EDT) Anatomical Region Laterality Modality Other 03/05/2025 2:32 PM EDT Impressions 03/05/2025 2:40 PM EDT - Normal esophagus. - Normal stomach. - Normal examined duodenum. - No specimens collected. Recommendation: - Continue present medications. Narrative 03/05/2025 2:40 PM EDT [facility] GI Patient Name: Nikia Wong Procedure Date: 03/05/2025 2:32 PM Date of : 1945 Age: 79 Room: ROOM 14 Gender: Female Note Status: Finalized Attending MD: Cosme Menendez MD, Procedure Date No Time: 03/05/2025 Procedure: Upper GI endoscopy Indications: Nausea, Weight loss Providers: Cosme Menendez MD Referring MD: Cosme Menendez MD Medicines: Propofol per Anesthesia Complications: No immediate complications. Estimated Blood Loss: Estimated blood loss: none. Procedure: Pre-Anesthesia Assessment: - ASA Grade Assessment: II - A patient with mild systemic disease. - ASA Grade Assessment: II - A patient with mild systemic disease. After obtaining informed consent, the endoscope was passed under direct vision. Throughout the procedure, the patient's blood pressure, pulse, and oxygen saturations were monitored continuously.The Endoscope was introduced through the mouth, and advanced to the second part of duodenum. The upper GI endoscopy was accomplished without difficulty. The patient tolerated the procedure well. Findings: The esophagus was normal. The stomach was normal. The examined duodenum was normal. Procedure Code(s): --- Professional --- 34358, Esophagogastroduodenoscopy, flexible, transoral; diagnostic, including collection of specimen(s) by brushing or washing, when performed (separate procedure) Diagnosis Code(s): --- Professional --- R11.0, Nausea R63.4, Abnormal weight loss CPT copyright 2020 [employer]. All rights reserved. The codes documented in this report are preliminary and upon supervisor cigar making hand review may be revised to meet current compliance requirements. Cosme Menendez MD 03/05/2025 2:40:11 PM This report has been signed electronically.Cosme Menendez MD Number of Addenda: 0 Note Initiated On: 03/05/2025 2:32 PM Scope In: Scope Out: Endoscopy Department at [facility] - [address] [place] [id number] Procedure Note Cosme Menendez MD - 03/05/2025 [facility] GI Patient Name: Nikia Wong Procedure Date: 03/05/2025 2:32 PM Date of : 1945 Age: 79 Room: ROOM 14 Gender: Female Note Status: Finalized Attending MD: Cosme Menendez MD, Procedure Date No Time: 03/05/2025 Procedure: Upper GI endoscopy Indications: Nausea, Weight loss Providers: Cosme Menendez MD Referring MD: Cosme Menendez MD Medicines: Propofol per Anesthesia Complications: No immediate complications. Estimated Blood Loss: Estimated blood loss: none. Procedure: Pre-Anesthesia Assessment: - ASA Grade Assessment: II - A patient with mild systemic disease. - ASA Grade Assessment: II - A patient with mild systemic disease. After obtaining informed consent, the endoscope was passed under direct vision. Throughout theprocedure, the patient's blood pressure, pulse, and oxygen saturations were monitored continuously.TheEndoscope was introduced through the mouth, and advanced tothe second part of duodenum. The upper GI endoscopy was accomplished without difficulty. The patienttolerated the procedure well. Findings: The esophagus was normal. The stomach was normal. The examined duodenum was normal. Procedure Code(s): --- Professional --- 59369, Esophagogastroduodenoscopy, flexible, transoral; diagnostic, including collection of specimen(s) by brushing or washing, when performed (separate procedure) Diagnosis Code(s): --- Professional --- R11.0, Nausea R63.4, Abnormal weight loss CPT copyright 2020 [employer]. All rights reserved. The codes documented in this report are preliminary and upon supervisor cigar making hand reviewmay be revised to meet current compliance requirements. Cosme Menendez MD 03/05/2025 2:40:11 PM This report has been signed electronically.Cosme Menendez MD Number of Addenda: 0 Note Initiated On: 03/05/2025 2:32 PM Scope In: Scope Out: Endoscopy Department at [address] [id number] IMPRESSION: - Normal esophagus. - Normal stomach. - Normal examined duodenum. - No specimens collected. Recommendation: - Continue present medications. Cosme Menendez MD GI~PROCEDURE ORDERABLES Fin al Result * Falls Risk Assessment (10/23/2023) Falls Risk Assessment Abstracted Historical Provider HEALTH MAINTENANCE Final Result * Depression Screening (08/22/2023) Depression Screening Abstracted Historical Provider HEALTH MAINTENANCE Final Result from Last 3 Months or Most Recently Relevant to Health Maintenance Insurance [facility]ARE [facility] Advance Directives * Full Code - Confirmed (Latest Code Status on File) Date Activated Date Inactivated Comments 08/24/2024 3:12 PM This code stat us was ascertained in the following way: Code status discussion: discussion with patient To update the patient's code status, place a code status order. Do not modify or discontinue any currently active code status orders. Care Teams Senior Systems Administrator Relationship Specialty Start Date End Date Jose Benavidez MD [address] [place] [address] PCP - General Internal Medicine 06/15/20
--- OUTSIDE RECORDS SUMMARY | 2025-04-30 12:45 | XMS_ITS | Clinical Summary ---
Author Organization [facility] Address [address] [place] [address] Care Team Providers Care Fire Sprinkler Inspector Name Role Phone Neal Nielsen MD Primary Care Provider [phone] Medications Medication Sig Dispensed Refills Start Date End Date Status hydroCHLOROthiazide (HYDRODIURIL) tablet 25 mg Take 1 tablet by mouth daily. 0 10/02/2021 Active lisinopril (PRINIVIL,ZESTRIL) tablet 10 mg Take 1 tablet by mouth daily. 0 10/02/2021 Active omeprazole (PriLOSEC) 20 MG capsule Take 1 capsule by mouth daily. 0 12/25/2021 Active atorvastatin (LIPITOR) tablet 10 mg Take 10 mg by mouth every evening. 0 Active Active Problems Problem Noted Date Diagnosed Date Osteopenia 01/11/2022 Social History Tobacco Use Types Packs/Day Years Used Date Smoking Tobacco: Never Assessed Sex and Gender Information Value Date Recorded Sex Assigned at Not on file Gender Identity Not on file Sexual Orientation Not on file Job Start Date Occupation Industry Not on file Not on file Not on file Last Filed Vital Signs Vital Sign Reading Time Taken Comments Blood Pressure 111/85 01/11/2022 12:50 PM EDT Pulse 87 01/11/2022 12:50 PM EDT Temperature 36.6 C (97.9 F) 01/11/2022 12:50 PM EDT Respiratory Rate - - Oxygen Saturation 98% 01/11/2022 12:50 PM EDT Inhaled Oxygen Concentration - - Weight 65.5 kg (144 lb 6.4 oz) 01/11/2022 12:50 PM EDT Height 155.6 cm (5' 1.25 ) 01/11/2022 1:12 PM ED T Body Mass Index 27.06 01/11/2022 12:50 PM EDT Plan of Treatment Health Maintenance Due Date Last Done Comments Depression Screening 1957 Preventative Health Evaluation 1963 Fall Risk Assessment 2010 Osteoporosis Screening (DEXA Scan) 2010 RSV Adult > 60+ Yrs or (1 - 1-dose 75+ series) 2020 Shingrix-Zoster Vaccine (2 of 2) 11/30/2020 10/05/2020 COVID-19 Vaccine ( - season) 2025 04/13/2021, 08/04/2020, 07/14/2020 Influenza Vaccine (#1) 2025 9, 03/30/2018, 04/01/2017, Additional history exists DTap / Tdap / Td (2 - Td or Tdap) 07/18/2026 07/18/2016 Pneumococcal Vaccine Completed 07/18/2016, 07/25/19 12 Hepatitis B Vaccines Aged Out No long er eligible based on patient's age to complete this topic RSV Ped < 20 months Aged Out No longe r eligible based on patient's age to complete this topic Care Teams Fire Sprinkler Inspector Relationship Specialty Start Date End Date Neal Nielsen MD [address], [place] [phone] PCP - General Internal Medicine 01/10/22
--- OUTSIDE RECORDS SUMMARY | 2025-04-30 12:45 | XMS_ITS | Encounter Summary ---
Author Organization [facility] Address [address] [place] [address] Care Team Providers Care Cut Order Hand Name Role Phone Jose Benavidez MD Primary Care Provider [phone] Encounter Details Date Type Department Care Team (Late st Contact Info) Description 03/16/2025 Results Follow-Up Adult Medicine [address] [phone] Jose Benavidez MD [address] [place] [address] Social History Tobacco Use Types Packs/Day Years [...] care for your loved ones. For example, child life therapist or elderly care for an older adult? [...] on file documented as of this encounter Plan of Treatment Upcoming Encounters Date Type Department Care Team (Late st Contact Info) Description 06/25/2025 8:00 AM EST Office Visit Adult Medicine [address] [phone] Jose Benavidez MD [address] [place] [address] documented as of this encounter Visit Diagnoses Not on filedocumented in this encounter Additional Health Concerns Assessment Noted Time PHQ-9 Depression Total Score: 0 08/19/19 25 9:49 AM EDT A fall risk assessment has been complete d for the patient 08/24/2024 2:44 PM EDT documented as of this encounter Care Teams Cut Order Hand Relationship Specialty Start Date End Date Jose Benavidez MD [address] [place] [phone] PCP - General Internal Medicine 06/15/20 documented as of this encounter
--- OUTSIDE RECORDS SUMMARY | 2025-04-30 12:45 | XMS_ITS | Data Portability ---
Author Organization [place] - [facility] [address] Address [address] [place] [address] Care Team Providers Care Sewer Pipe Cleaner Name Role Phone YOSVANY KOHLI Primary Care Provider KATIE WEISS Orthopedic Surgeon [phone] Assessment Encounter Date Assessment Date Assessment LastModified by Organization Details LastModified Time 09/13/2023 09/13/2023 inj 3 mo ago--worked fine Recurrent left shoulder pain She had a right shoulder replacement Pain with overhand activity and impingement [email or web address] Not available 09/13/2023 12:45:03 Plan of Treatment Reminders Order Date Submit Date Provider Last Modified By Organization Details Last Modified Time Details Appointments None recorded. Lab None recorded. Referral orthopedic surgeon referral - left rotator tendonitis, h/o surgery 2022- seeking steroid injection only 2023 024 [email or web address] 4 Katie Weiss MD ([facility]), [address] [facility], [facility] [address], [address], 4 08:07:49 Procedures None recorded. Surgeries None recorded. Imaging XR, shoulder, 2 or more view 2023 024 [email or web address] 7 In-Office Order, Internal Use Only DO Not Attach Compendium DO Not Attach Compendium, Do Not Delete/merge, [id number] 15:27:37 Medication Orders Medrol (Calos) 4 mg tablets in a dose pack 2023 024 [email or web address] 7 [facility] #[id number], [address], [place], [id number], 4 15:27:37 diclofenac 1 % topical gel 2023 024 [facility] #[id number], [address], [place], [id number], 4 10:21:50 Solu-Medrol (PF) 125 mg/2 mL solution for injection 2023 024 [email or web address] Not available 4 16:00:16 meloxicam 15 mg tablet 2023 024 [facility] #[id number], [address], [place], [id number], 4 10:22:49 ondansetron HCl 4 mg tablet 2022 023 [facility][id number], [address], [place], [id number], 3 09:05:59 Patient TargetsNo targets recorded. Patient Instructions Encounter Date Encounter Id Patient Instructions Last Modified By Organization Details Last Modified Time 10/01/2022 [id number] nausea and vomiting: care instructions [email or web address] Not available 10/01/2022 09:05:51 cough: care instructions [email or web address] Not available 10/01/2022 09:05:51 Reason for Referral Orthopedic Surgeon Referral for Tendinitis of left shoulder left rotator tendonitis, h/o surgery 2022- seeking steroid injection only Referring Physician: Vandana Jenkins, Family Medicine, Encounter Date: 09/11/2023 Results Created Date Observation Date Name Description Value Unit Range Abnormal Flag Note LastModifiedBy Organization Detail LastModifiedTime 09/13/19 24 XR, shoul jazz, 2 or more view No observ ation record ed. [email or web address] In-Office Order Internal Use Only DO Not Attach Compendium DO Not Attach Compendium, Do Not Delete/merge, [id number] 09/13/2023 10:33:16 Result Notes None recorded. Problems Name Problem SNOMED Code Status Onset Date Resolution Date Notes Provider Name and Address Organization Details Recorded Time Cough 92147817 Active 2022 VANDANA JENKINS, TARIFF CLERK [address] [place], [address], [address] 3 09:03:32 Nausea 879079904 Active 2022 VANDANA JENKINS, TARIFF CLERK [facility] [place], [address], [address] 3 09:03:39 Tendinitis of left shoulder 8310010931448 103 Active 2023 VANDANA JENKINS, TARIFF CLERK [facility] [place], [address], [address] 4 10:17:53 Arthritis of acromioclav icular joint 924855491 Active 2023 Ladonna Dicostanz o, FRONT MAKER null, [place] - [facility] [place] 4 10:38:21 Osteoarthri tis of glenohumera l joint 750452215 Active 2023 Ladonna Dicostanz o, FRONT MAKER null, [place] [facility] [place] 4 10:39:06 Arthritis of acromioclav icular joint 436680023 Active 2023 Ladonna Dicostanz o, FRONT MAKER null, [place] - [facility] [place] 4 10:39:13 Osteoarthri tis of glenohumera l joint 637447642 Active 2023 Ladonna Dicostanz o, FRONT MAKER null, [place] - [facility] [place] 4 10:39:19 Subacromial bursitis of left shoulder 0675513804116 106 Active 2023 KATIE WEISS MD [address] ,[address], [place], [address], [facility]14 [place] 4 12:45:11 Problem Notes None recorded. Procedures Surgical History Date Name Laterality Status Provider Name and Address Organization Details Recorded Time 4 Left Shoulder Cortisone Injection - Beretta completed Ladonna Saleh CMA [place] - [facility] [place] 09/13/2023 10:39:31 3 Shoulder Surgery completed Claus Browning [place] - [facility]14 [place] 09/13/2023 10:29:24 3 Shoulder Surgery completed Claus Browning [place] - [facility]14 [place] 09/13/2023 10:28:04 Imaging Results None recorded. Procedure Notes None recorded. Medical Equipment None Reported. Allergies No known drug allergies Medications Name Sig Start Date Stop Date Status Note LastModified by Organization Details LastModified Time magic mouthwash SHAKE WELL. SWISH 15-30ML BY MOUTH FOR 1-2 MINUTES. SPIT AND RINSE WITH WATER EVERY 1-2 HOURS NEEDED. active Not Available Not Available No t Available atorvastati n 40 mg tablet TAKE 1 TABLET BY MOUTH AT BEDTIME active Not Available Not Available No t Available aspirin 325 mg tablet active Not Available Not Available No t Available meloxicam 15 mg tablet Take 1 tablet every day by oral route with meal(s) for 14 days, for left shoulder. active Not Available Not Available No t Available ondansetron HCl 4 mg tablet TAKE 1 TABLET BY MOUTH EVERY 8 HOURS FOR UP TO 9 DAYS NEEDED FOR NAUSEA active Not Available Not Available No t Available fluorouraci l 5 % topical cream APPLY TO TO THE AFFECTED AREA ON RIGHT CHEEK TWICE DAILY FOR 2 WEEKS. EXPECT REDNESS AND IRRITATIO N. AVOID SUN EXPOSURE. active Not Available Not Available No t Available acetaminoph en 500 mg tablet TAKE 2 TABLETS BY MOUTH EVERY 8 HOURS AROUND THE CLOCK FOR PAIN DIRECTED 09/12 completed Not Available Not Available Not Available lorazepam 0.5 mg tablet TAKE 1 TABLET BY MOUTH EVERY 6 HOURS FOR UP TO 7 DAYS NEEDED FOR ANXIETY active Not Available Not Available No t Available lisinopril 10 mg tablet TAKE 1 TABLET BY MOUTH DAILY active Not Available Not Available No t Available docusate sodium 100 mg capsule TAKE ONE CAPSULE BY MOUTH UP TO TWICE DAILY DIRECTED NEEDED FOR CONSTIPAT ION WHILE TAKING NARCOTIC MEDICATIO NS active Not Available Not Available No t Available omeprazole 20 mg capsule,del ayed release TAKE 1 CAPSULE BY MOUTH DAILY active Not Available Not Available No t Available folic acid 1 mg tablet TAKE 1 TABLET BY MOUTH DAILY active Not Available Not Available No t Available hydrochloro thiazide 25 mg tablet TAKE 1 TABLET BY MOUTH DAILY active Not Available Not Available No t Available methylpredn isolone 4 mg tablets in a dose pack FOLLOW PACKAGE DIRECTION S active Not Available Not Available No t Available oxycodone 5 mg tablet TAKE 1 TABLET BY MOUTH DAILY NEEDED FOR PAIN 09/12 completed Not Available Not Available Not Available atorvastati n active Not Available Not Available Not Available hydrochloro thiazide active Not Available Not Available Not Available diclofenac 1 % topical gel APPLY 2 GRAMS TO THE AFFECTED AREA(S) BY TOPICAL ROUTE 4 TIMES PER DAY 2023 active Not Available Not Available Not Avai lable Solu-Medrol (PF) 125 mg/2 mL solution for injection Take 125 mg by injection route for 1 day. 2023 active Not Available Not Available Not Avai lable Antacid-Ant igas 200 mg-200 mg-20 mg/5 mL oral suspension active Not Available Not Available N ot Available Vitals Date Recorded Body height Body mass index (BMI) Body weight Body temperature Heart rate Oxygen saturation Respiratory rate Pain severity - 0-10 verbal numeric rating [Score] - Reported Systolic And Diastolic Provider Name and Address Organization Details Last Updated DateTime 4 157.48 cm 25.6 kg/m2 96054.9 3 g 97 [degF] 97 /min 97 % 18 /min 0 159/74 mm[Hg] Jazlyn Espinal Cma [place] - [facility]14 [place] 4 09:56:45 Date Recorded Body height Body mass index (BMI) Body weight Provider Name and Address Organization Details Last Updated DateTime 09/13/2023 154.94 cm 26.5 kg/m2 98452.93 g Claus Browning [facility] [place] 09/13/2023 10:30:09 Date Recorded Respiratory rate Body weight Body mass index (BMI) Body height Body temperature Heart rate Oxygen saturation Pain severity - 0-10 verbal numeric rating [Score] - Reported Systolic And Diastolic Provider Name and Address Organization Details Last Updated DateTime 3 16 /min 02836.0 6 g 25.5 kg/m2 157.48 cm 97.8 [degF] 16 /min 97 % 0 166/104 mm[Hg] Kayden Grimes LPN [place] - [facility]14 [place] 3 08:40:58 Social History Question Answer Notes LastModified by Organizat ion Details LastModified Time Are You Blind Or Do You Have Difficulty Seeing? No Information not available 09/11/2023 What Is Your Level Of Caffeine Consumption? None Information not available 09/11/2023 Are You Deaf Or Do You Have Serious Difficulty Hearing? No Information not available 09/11/2023 What Was The Date Of Your Most Recent Tobacco Screening? 09/11/2023 Information not available 09/11/2023 Do You Have Difficulty Walking Or Climbing Stairs? No Information not available 09/11/2023 Sex: Unknown Functional Status Question Answer Note LastModified by Organization D etails LastModified Time What is your level of alcohol consumption? None Information not available 09/11/2023 Do you have difficulty doing errands alone? No Information not available 09/11/2023 Are you able to care for yourself independently? Yes Information not available 09/11/2023 Do you have difficulty dressing, bathing, grooming, or toileting? No Information not available 09/11/2023 Mental Status Question Answer Note LastModified by Organization D etails LastModified Time Do you have difficulty concentrating, remembering or making decisions? No Information no t available 09/11/2023 Family History Relationship Description Onset Age of this Age Resolved Age Notes LastModified by Organization Details LastModified Time Mother [email or web address] Not available 08:48:41 Medical History Condition Response Hyperlipidemia Y Hypertension Y Osteoporosis Y High Cholesterol Y Gynecological HistoryNo gynecological history recorded. Obstetrics History GPAL:G 0 P 0 0 0 0 Immunizations Vaccine Type Date Status Note Provider Nam e and Address Organization Details Recorded Time influenza nasal, unspecified formulation 05/10/2022 completed Kayden Grimes LPN null, [facility] [place] 10/01/2022 08:47:06 zoster recombinant 05/10/2022 completed Kayden Grimes LPN null, [facility] [place] 10/01/2022 08:47:28 Past Encounters Encounter ID Performer Location Encounter Start Date Encounter Closed Date Diagnosis/Indication Diagnosis SNOMED-CT Code Diagnosis ICD10 Code Diagnosis IMO Codes Diagnosis Note [id number] VANDANA JENKINS APRN [facility] [address] [place] [address] 10/01/2022 08:12:25 10/01/2022 09:05:03 Cough 70538746 R05.9 Plan today is supportive treatment. OTC Mucinex DM as needed for productive cough and antitussiv e for dry, irritated cough.Enco uraged warm beverages, humidified air, dark honey, fluids, rest, scheduled tylenol 1000mg every 6 hrs for fever or pain.ER precaution s discussed Nausea 824852736 R11.0 take anti emetic 30-45 mins before medication [id number] VANDANA JENKINS APRN [facility] [address] [place] [address] 09/11/2023 09:06:19 09/11/2023 10:26:37 Tendinitis of left shoulder 1567151725 145313 M75.92 Plan IM injection today. Continue NSAIDs tomorrow. Patient could benefit from joint injection, referral to orthopedic placed. She is leaving October 06 to return to [facility]. You may apply warm or cold packs as needed for discomfort . 20 minutes on and 20 minutes off for both hot and cold packs, to allow skin to vasodilate and avoid skin irritation . Never use warm or cold packs in bed for risk of falling asleep and obtaining skin burn.ROM exercises encouraged when pain improves. If symptoms do not improve within 5 to 7 days, Patient was instructed to follow-up for further evaluation with UC or primary care. Customary discussion of prescribed medication benefits, side effects, and compliance was done. Discussed disease presentati on, treatment options, progressio n, complicati ons, and outcomes with patient during this office visit. Patient has expressed understand ing and is in agreement of plan of care. [id number] MD MAIRA LEONARDO_[address] [facility] [address] [facility] [address] [place] [address] 09/13/2023 09:24:01 09/13/2023 10:47:20 Pain of shoulder region 09378582 M25.512 Arthritis of acromioclavicular joint 528462790 M13.812 After appropriat e consent was obtained from the patient, an injection of1 cc of Depomedrol 80 mg/mL and 3 cc Lidocaine 1% was given to left shoulder. There was careful preparatio n of the skin with alcohol. Adverse reactions were discussed with the patient and it was recommende d icing be performed on the night of the injection. Additional diagnosis , treatment, tests or referrals and instructio ns are not part of the procedure or for postproced ural care. The injection procedure was performed due to pain and dysfunctio n that is now affecting activities of daily living, concentrat ion and bodily functions. The pain is refractory to other modalities of treatment. This is the only diagnosis associated with the procedure today. Osteoarthr itis of glenohumeral joint 318084011 M19.012 History of reverse prosthetic total arthroplasty of right shoulder 9857908092 6462830 Z96.611 Subacromia l bursitis of left shoulder 9512728895 720258 M75.52 Health Concerns Section Related Observation LastModified by Organization Detai ls LastModified Time None Recorded Concern Status LastModified by Organization Details LastModified Time None Recorded Advance Directives Directive None Recorded Payers Insurance Date Sequence Insurance Name Policy Number Policy Espinoza Covered Member ID Espinoza Member ID Guarantor Name 09/23/2023 2 [facility] Nikia Gonzalez Merchant [id number] Nikia Gonzalez Merchant 03/14/2025 1 MEDICARE [place]: [employer] Nikia Taylor Merchant [id number] Nikia Gonzalez Merchant 09/13/2023 [place] Nikia Taylor Merchant [id number] Nikia Gonzalez [employer] Notes Date Note Type Note Provider Name and Address Organization Details Recorded Time 10/01/2022 text/html CoughReported by PatientHPIFor quality, patient reportsharsh. For severity, patient reportsworsening. For context, patient reportsworse at nightbut reportsnon-smoker. For associated symptoms, patient reportsnauseabut reportsno fever,no chills,no chest pain,no heartburn,no vomiting,no edema,no agitation,no wheezing, andno post nasal drip. For duration, patient reportsintermittent(wo rse at night). For timing, patient reportsgradual.Has been using Mucinex intermittently over the past 4 daysROS as noted in the HPI VANDANA JENKNIS, [address] [place], [address], [facility]14 [place] 10/01/2022 09:07:16 09/11/2023 text/html ShoulderReported by PatientHPIFor hand dominance, patient reportsright. For location, patient reportsleft. For quality, patient reportsachingandsharp. For severity, patient reportspain level ___/10. For duration, patient reports2 weeks. For timing, patient reportschronic. For alleviating factors, patient reportsnsaids. For aggravating factors, patient reportscannot identify. For associated symptoms, patient reportsno weakness,no numbness,no tingling,no swelling,no redness,no warmth,no ecchymosis,no catching/locking,no popping/clicking,no buckling,no grinding,no instability,no radiation down arm,no drainage,no fever,no chills,no weight loss, andno change in bowel/bladder habits. For prior imaging, patient reportsx rayandmri. For previous injections, patient reportshelped significantly. For context, (left shoulder aching, where she had a h/o 75% correction of rotator cuff). For previous surgery, (left rotator cuff surgery 07/2022right should replacement 01/2023).no h/o DM, kidney or heart issuesROS as noted in the HPI VANDANA JENKINS APRN [address] [place], [address], [facility]14 [place] 09/11/2023 11:14:56 09/13/2023 text/html ShoulderReported by PatientHPIFor associated symptoms, patient reportsweakness. For hand dominance, patient reportsambidextrous. For location, patient reportsleft. For quality, patient reportsaching,constant , andworsening. For severity, patient reportssevere. For duration, patient reportscontinuous since onset. For timing, patient reportschronicandrecur rent. For context, patient reportsoveruse. For alleviating factors, patient reportsrest,limited weight bearing,cortisone injection, andprevious surgery. For aggravating factors, patient reportsromandweightbea ring. For previous surgery, patient reportssurgical procedure: (left rcr - 07/2022right rev total shoulder 01/2023). For prior imaging, patient reportsx ray (psychiatric 09/13/2023). For previous injections, patient reportshelped temporarily (09/11/2023). For previous pt, patient reportsnone. For work related, patient reportsno. For working, patient reportsno. KATIE WEISS MD [address] [facility] [address], [place], [address], [facility] [place] 09/13/2023 12:45:19 OBGyn Episode No OBEpisode recorded.
--- NOTE | 2025-04-30 12:47 | A.PHYSOV_ITS ---
Vital Signs 04/30/25 12:48 Height 5 ft 1 in Weight 120 lb BMI 22.7 Intake Visit Reasons: Left shoulder injection Intake Note: Patient is an 80 year old female her for a left shoulder injection. Vendor Manager Required: No Allergies fluconazole Allergy (Verified 04/30/25 12:50) Unknown [facility] Medical History History of kidney stones Pulmonary nodule Osteoporosis Cataracts, bilateral Hypothyroidism Hypercholesteremia Hypertension GERD (gastroesophageal reflux disease) Surgical History Hx of colonoscopy Hx of repair of left rotator cuff History of right shoulder replacement (~2022) Social History Are you a primary care management assistant to a significant other at home: No Do you presently have visiting nurse or other home services: No Alcohol intake: current Alcohol intake frequency: holidays/special occasions only Patient Tobacco Use Status: Never used Tobacco Physical Exam Vital Signs: BMI result Body Mass Index 22.7 Office Procedures AMB Shoulder Injection AMB Shoulder Injection Procedure Details: Left Glenohumeral joint injection: The patient was educated about risks, complications and benefits including but not limited to increased serum glucose, infection, nerve damage, bleeding, tendon/ligament damage and pain. We agree with a glenohumeral injection is the next best step in the treatment plan. Verbal consent was obtained. Using aseptic technique, the skin was cleansed with Betadine. Ethyl chloride was used to desensitize the skin. Using a posterior approach, 40 mg of Kenalog and 3 mL 2% lidocaine were injected using a 25-gauge inch and a half needle into the joint. The patient tolerated the procedure well without immediate complication. Postinjection instructions were given. Shoulder Injection - : Left All charges added?: Procedure code (CPT) selection complete Office Meds Kenalog 40 mg/mL suspension for injection Performing Provider: CHLOE Hung Performing Location: [facility] Family [facility] Administered by: CHLOE Hung on 04/30/25 14:12 Dose Route Admin Location Dispensed Lot Number Expiration Date [facility] Director Of Sales And Marketing 40 mg intra-articular 1 mL [id number] [employer] Total Dispensed Waste 1 mL 0 % lidocaine (PF) 20 mg/mL (2 %) injection solution Performing Provider: CHLOE Hung Performing Location: [facility] Administered by: CHLOE uHng on 04/30/25 14:12 Dose Route Admin Location Dispensed Lot Number Expiration Date [employer] Director Of Sales And Marketing 60 mg intra-articular 50 mL [id number] Total Dispensed Waste 50 mL 0 % Assessment & Plan Assessment & Plan (1) Primary osteoarthritis, left shoulder: Code(s): M19.012 - Primary osteoarthritis, left shoulder Category: Medical Plan Ms. Guzman is a 80-year-old female seen in evaluation today for left shoulder glenohumeral joint osteoarthritis. Today she consented to glenohumeral joint injection. She was given post-injection instructions, recommend: Moist heat compresses for 15 minutes 5 times daily. Continue rotator cuff exercises. Follow-up with our office as needed. Thank you for allowing me to participate in the care of your patient. Orders: Orders AMB Shoulder Injection Today M19.012 - Primary osteoarthritis, left shoulder Coding Level of Care Code Procedure Only Diagnoses Primary osteoarthritis, left shoulder M19.012 CPT Codes AMB Shoulder Injection - Hip/Bursa Injection - : Left ([id number])
[2025-04-30 12:48] VITALS: BMI 22.7
== END 2025-04-30 13:03 | disposition home or self-care (01) ==
LOC: HO.HPHYS 12:13
PROVIDERS: PCP Internal Medicine; Visit Provider Physician Assistant
DX: M19.012 Primary osteoarthritis, left shoulder (principal)
CPT/HCPCS: 20610

== ENCOUNTER → 2025-04-30 12:13 | Outpatient (BNVA) | payer MEDICARE, SELFPAY | PROVIDERS: PCP Internal Medicine; Visit Provider Physician Assistant | DX: M19.012 Primary osteoarthritis, left shoulder (principal) | CPT/HCPCS: 20610; J2003; J3301 ==